=== PATIENT | female | born 1965 | race Caucasian/White ===

== ENCOUNTER 2016-09-09 18:15 | Emergency (ER) | payer BC ==
[2016-09-09 18:33] VITALS: BP 138/91
--- NOTE | 2016-09-09 18:48 | EDM.PDOC ---
ED HPI GENERAL MEDICAL PROBLEM - General Chief Complaint: Gastrointestinal Problem Stated Complaint: PT HAS RECTAL BLEEDING Time Seen by Provider: 09/09/16 18:28 Source of Information: Reports: Patient History Limitations: Reports: No Limitations - History of Present Illness INITIAL COMMENTS - FREE TEXT/NARRATIVE: Presents reporting rectal bleeding. The patient states that she just noticed it today and had 3 loose stools with some bright red blood in it. She had a screening colonoscopy in March of 2016 which was totally normal. No abdominal pain, fever, vomiting or any other symptoms. She is otherwise healthy except for a chronic kidney disease which is stable. 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 - Related Data Allergies Allergy/AdvReac Type Severity Reaction Status Date / Time animal dander Allergy Shortness Verified 09/09/16 18:28 of Breath spironolactone Allergy Hives Verified 09/09/16 18:28 [From Aldactone] Home Meds: Home Meds Citalopram [Celexa] 10 mg PO DAILY 08/02/15 [History] Furosemide 40 mg PO DAILY 08/02/15 [History] atorvaSTATin Calcium [Atorvastatin Calcium] 40 mg PO BEDTIME 08/02/15 [History] Aspirin [Joanne Chewable] 81 mg PO DAILY 09/09/16 [History] Lorcaserin HCl [Belviq] 10 mg PO DAILY 09/09/16 [History] Losartan [Cozaar] 50 mg PO BID 09/09/16 [History] Past Medical History HEENT History: Reports: None Cardiovascular History: Reports: High Cholesterol, Hypertension Respiratory History: Reports: None Gastrointestinal History: Reports: GERD Other Gastrointestinal History: occasional heartburn Genitourinary History: Reports: Renal Disease 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: Musculoskeletal History: Reports: None Neurological History: Reports: None Psychiatric History: Reports: Anxiety, Depression Endocrine/Metabolic History: Reports: Obesity/BMI 30+ Hematologic History: Reports: None Immunologic History: Reports: None Oncologic (Cancer) History: Other Oncologic History: melanoma Dermatologic History: Reports: Melanoma - Past Surgical History Head Surgeries/Procedures: Reports: None GI Surgical History: Reports: Cholecystectomy Female Surgical History: Reports: Section Social & Family History - Family History Family Medical History: Noncontributory - Tobacco Use Smoking Status *Q: Current Every Day Smoker Years of Tobacco use: 30 Packs/Tins Daily: 1 - Recreational Drug Use Recreational Drug Use: No Drug Use in Last 12 Months: No ED ROS GENERAL - Review of Systems Review Of Systems: ROS reveals no pertinent complaints other than HPI. ED EXAM, GI/ABD - Physical Exam Exam: See Below General Appearance: Alert, No Apparent Distress Ears: Normal External Exam Nose: Normal Inspection Throat/Mouth: Normal Inspection Head: Atraumatic, Normocephalic Neck: Normal Inspection Respiratory/Chest: No Respiratory Distress, Lungs Clear, Normal Breath Sounds Cardiovascular: Normal Peripheral Pulses, Regular Rate, Rhythm, No Murmur GI/Abdominal: Normal Bowel Sounds, Soft, Non-Tender, No Distention, Other Rectal (Female) Exam: Normal Exam, Normal Rectal Tone, Heme - Stool, Other (On digital exam, my finger came out with stacy colored liquid but it was hemoccult negative.). No: Black Stool Back Exam: Normal Inspection, Full Range of Motion Extremities: Normal Inspection, Normal Range of Motion, Non-Tender Neurological: Alert, Oriented Psychiatric: Normal Affect, Normal Mood Skin Exam: Warm, Dry, Intact, Normal Color, No Rash Lymphatic: No Adenopathy Course - Vital Signs Last Recorded V/S: Last Vital Signs Temp 37.1 C 09/09/16 18:30 Pulse 84 09/09/16 18:30 Resp 18 09/09/16 18:30 BP 138/91 H 09/09/16 18:30 Pulse Ox 97 09/09/16 18:30 - Re-Assessments/Exams Free Text/Narrative Re-Assessment/Exam: 09/09/16 18:47 On further recollection the patient states that she had sushi last night with a bright red wrap. Departure - Departure Time of Disposition: 18:48 Disposition: Home, Self-Care 01 Condition: good Clinical Impression: Feared condition not demonstrated - Discharge Information Referrals: PCP,None [Primary Care Provider] - Jessica Garcia DO [Physician] - Forms: ED Department Discharge
== END 2016-09-09 19:01 | disposition home or self-care (01) ==
LOC: MW.ED 18:15
DX: Z71.1 Person with feared health complaint in whom no diagnosis is made (principal); K62.5 Hemorrhage of anus and rectum; I10 Essential (primary) hypertension; E78.00 Pure hypercholesterolemia, unspecified; K21.9 Gastro-esophageal reflux disease without esophagitis; F41.9 Anxiety disorder, unspecified; F32.9 Major depressive disorder, single episode, unspecified; F17.210 Nicotine dependence, cigarettes, uncomplicated; E66.9 Obesity, unspecified; Z68.32 Body mass index [BMI] 32.0-32.9, adult; Z90.49 Acquired absence of other specified parts of digestive tract; Z98.890 Other specified postprocedural states; Z79.82 Long term (current) use of aspirin; Z79.899 Other long term (current) drug therapy; Z88.8 Allergy status to other drugs, medicaments and biological substances; Z91.048 Other nonmedicinal substance allergy status
CPT/HCPCS: 99282; 99283

== ENCOUNTER 2018-11-17 22:39 | Observation (INO) | payer BC ==
[2018-11-17] MEDS ORDERED: Sodium Chloride 0.9% 1,000 ML IV ONE (23:02)
[2018-11-17] MEDS ORDERED: Ketorolac 30 MG/ML SDV IVPUSH ONE (23:02)
[2018-11-17] MEDS ORDERED: Ondansetron 4 MG/2 ML SDV IVPUSH ONE (23:14)
--- NOTE | 2018-11-17 23:14 | EDM.PDOC ---
ED HPI GENERAL MEDICAL PROBLEM - General Chief Complaint: Fever Stated Complaint: FEVER Time Seen by Provider: 11/17/18 22:40 Source of Information: Reports: Patient History Limitations: Reports: No Limitations - History of Present Illness INITIAL COMMENTS - FREE TEXT/NARRATIVE: HISTORY AND PHYSICAL: History of present illness: Patient is a 53-year-old female who presents to the ED today for concern of feeling feverish with chills that was sudden onset about an hour ago when she was getting ready for bed. Patient states it was almost immediate and then she felt chilly she couldn't get warm. Patient states she did not check a temperature at home but did take a full dose of Tylenol. Patient states she feels "crappy". Patient states over the past 2 days she has had a cough. Patient has a difficult time trying to express how she feels but states that she feels unwell. 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 Patient states she has never had these feelings before. Patient denies any other symptoms or concerns at this time. Patient does smoke 1/2 pack a day for 20-30 years. Patient denies chest pain, shortness of breath. Denies headache, neck stiff ness , change in vision, syncope, or near syncope. Denies vomiting, abdominal pain, diarrhea, constipation, or dysuria. Has not noted any blood in urine or stool. Patient has been eating and drinking appropriately prior to onset of symptoms. Review of systems: As per history of present illness and below otherwise all systems reviewed and negative. Past medical history: As per history of present illness and as reviewed below otherwise noncontributory. Surgical history: As per history of present illness and as reviewed below otherwise noncontributory. Social history: See social history for further information Family history: As per history of present illness and as reviewed below otherwise noncontributory. Physical exam: General: Patient is alert, oriented, and in no acute distress. Patient sitting comfortably on exam table but is tearful on exam and tired appearing. HEENT: Atraumatic, normocephalic, pupils equal and reactive bilaterally, negative for conjunctival pallor or scleral icterus, mucous membranes moist, TMs normal bilaterally, throat clear, neck supple, nontender, trachea midline. No drooling or trismus noted. No meningeal signs. No hot potato voice noted. Lungs: Clear to auscultation, breath sounds equal bilaterally, chest nontender. Heart: S1S2, regular rate and rhythm without overt murmur Abdomen: Soft, nondistended, nontender. Negative for masses or hepatosplenomegaly. Negative for costovertebral tenderness. Pelvis: Stable nontender. Genitourinary: Deferred. Rectal: Deferred. Skin: Intact, warm, dry. No lesions or rashes noted. Extremities: Atraumatic, negative for cords or calf pain. Neurovascular unremarkable. Neuro: Awake, alert, oriented. Cranial nerves II through XII unremarkable. Cerebellum unremarkable. Motor and sensory unremarkable throughout. Exam nonfocal. Notes: Dr. Lopez verbally involved in patient care. Although CXR reads negative, I did compare with past CXR we have on file for patient and today there does appear to be a new shadowing / prominent markings in the retrocardiac area on the lateral films. With patient's symptoms, along with her history of heavy smoking, elevated white count, and concern for an early or probable pneumonia. Dr. Lau consulted on patient and will admit to observation. Voices understanding and is agreeable to plan of care. Denies any further questions or concerns at this time. Diagnostics: CBC, CMP, UA, EKG, troponin, chest x-ray, Mckinley, influenza, d-dimer, lactate, blood cultures 2 Therapeutics: Saline, Toradol, Zofran, Levaquin Impression: Possible early community acquired pneumonia Leukocytosis Dehydration Plan: 1. Admit to observation to Dr. Lau Definitive disposition and diagnosis as appropriate pending reevaluation and review of above. 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 ASSISTANT: Reports: Acetaminophen - Related Data Allergies Allergy/AdvReac Type Severity Reaction Status Date / Time animal dander Allergy Shortness Verified 11/17/18 22:45 of Breath spironolactone Allergy Hives Verified 11/17/18 22:45 [From Aldactone] Home Meds: Home Meds Furosemide 40 mg PO DAILY 08/02/15 [History] atorvaSTATin Calcium [Atorvastatin Calcium] 40 mg PO BEDTIME 08/02/15 [History] Aspirin [Joanne Chewable] 81 mg PO DAILY 09/09/16 [History] Losartan [Cozaar] 50 mg PO BID 09/09/16 [History] Past Medical History HEENT History: Reports: None Cardiovascular History: Reports: High Cholesterol, Hypertension Respiratory History: Reports: Bronchitis, Recurrent Gastrointestinal History: Reports: GERD Other Gastrointestinal History: occasional heartburn Genitourinary History: Reports: Renal Disease 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: Reports: Musculoskeletal History: Reports: None Neurological History: Reports: None Psychiatric History: Reports: Anxiety, Depression Endocrine/Metabolic History: Reports: Obesity/BMI 30+ Hematologic History: Reports: None Immunologic History: Reports: None Oncologic (Cancer) History: Other Oncologic History: melanoma Dermatologic History: Reports: Melanoma - Infectious Disease History Infectious Disease History: Reports: Chicken Pox - Past Surgical History Head Surgeries/Procedures: Reports: None GI Surgical History: Reports: Cholecystectomy Female Surgical History: Reports: Section Social & Family History - Family History Family Medical History: Noncontributory - Tobacco Use Smoking Status *Q: Current Every Day Smoker Years of Tobacco use: 25 Packs/Tins Daily: 0.5 - Caffeine Use Caffeine Use: Reports: Coffee - Recreational Drug Use Recreational Drug Use: No ED ROS GENERAL - Review of Systems Review Of Systems: ROS reveals no pertinent complaints other than HPI. ED EXAM, GENERAL - Physical Exam Exam: See Below (see dictation) Course - Vital Signs Last Recorded V/S: Last Vital Signs Temp 37.9 C 11/18/18 00:00 Pulse 104 H 11/18/18 00:00 Resp 18 11/18/18 00:00 BP 127/63 11/18/18 00:00 Pulse Ox 95 11/18/18 00:00 - Orders/Labs/Meds Orders: Active Orders 24 hr Category Date Time Status Admission Status [Patient Status] [ADT] Stat ADT 11/18/18 00:04 Ordered EKG Documentation Completion [RC] STAT Care 11/17/18 22:54 Active CULTURE BLOOD [BC] Stat Lab 11/17/18 23:25 Received CULTURE BLOOD [BC] Stat Lab 11/17/18 23:35 Received Levofloxacin/Dextrose 5%-Water [Levaquin in D5W 750 MG/ Med 11/18/18 00:04 Ordered 150 ML] 750 mg Premix Bag 1 bag IV ONETIME Blood Culture x2 Reflex Set [OM.PC] Stat Oth 11/17/18 23:08 Ordered Medication Orders Levofloxacin/Dextrose 750 mg/ (Premix) 150 mls @ 100 mls/hr IV ONETIME ONE Stop: 11/18/18 01:33 Labs: Laboratory Tests 11/17/18 11/17/18 11/17/18 Range/Units 23:00 23:02 23:02 WBC 20.78 H (4.0-11.0) K/uL RBC 5.03 (4.30-5.90) M/uL Hgb 15.9 (12.0-16.0) g/dL Hct 45.9 (36.0-46.0) % MCV 91.3 (80.0-98.0) fL MCH 31.6 (27.0-32.0) pg MCHC 34.6 (31.0-37.0) g/dL RDW Std Deviation 41.1 (28.0-62.0) fl RDW Coeff of Kourtney 13 (11.0-15.0) % Plt Count 236 (150-400) K/uL MPV 10.30 (7.40-12.00) fL Neut % (Auto) 75.9 (48.0-80.0) % Lymph % (Auto) 15.9 L (16.0-40.0) % Mckinley % (Auto) 6.2 (0.0-15.0) % Eos % (Auto) 1.6 (0.0-7.0) % Baso % (Auto) 0.4 (0.0-1.5) % Neut # (Auto) 15.8 H (1.4-5.7) K/uL Lymph # (Auto) 3.3 H (0.6-2.4) K/uL Mckinley # (Auto) 1.3 H (0.0-0.8) K/uL Eos # (Auto) 0.3 (0.0-0.7) K/uL Baso # (Auto) 0.1 (0.0-0.1) K/uL D-Dimer, Quantitative (0.0-0.50) mg/L FEU Lactate (0.20-2.00) mmol/L Sodium 139 (136-145) mmol/L Potassium 3.8 (3.5-5.1) mmol/L Chloride 105 (98-107) mmol/L Carbon Dioxide 20.8 L (21.0-32.0) mmol/L BUN 23 H (7.0-18.0) mg/dL Creatinine 1.5 H (0.6-1.0) mg/dL Est Cr Clr Drug Dosing 45.33 mL/min Estimated GFR (MDRD) 36.3 ml/min Glucose 89 (74-106) mg/dL Calcium 9.7 (8.5-10.1) mg/dL Total Bilirubin 0.5 (0.2-1.0) mg/dL AST 20 (15-37) IU/L ALT 33 (14-63) IU/L Alkaline Phosphatase 105 (46-116) U/L Troponin I (0.000-0.056) ng/mL Total Protein 6.8 (6.4-8.2) g/dL Albumin 3.3 L (3.4-5.0) g/dL Globulin 3.5 (2.6-4.0) g/dL Albumin/Globulin Ratio 0.9 (0.9-1.6) Urine Color YELLOW Urine Appearance HAZY Urine pH 5.5 (5.0-8.0) Ur Specific Royal 1.020 (1.001-1.035) Urine Protein 100 H (NEGATIVE) mg/dL Urine Glucose (UA) NEGATIVE (NEGATIVE) mg/dL Urine Ketones NEGATIVE (NEGATIVE) mg/dL Urine Occult Blood SMALL H (NEGATIVE) Urine Nitrite NEGATIVE (NEGATIVE) Urine Bilirubin NEGATIVE (NEGATIVE) Urine Urobilinogen 0.2 (<2.0) EU/dL Ur Leukocyte Esterase NEGATIVE (NEGATIVE) Urine RBC 0-3 (0-2/HPF) Urine WBC 0-2 (0-5/HPF) Ur Epithelial Cells FEW (NONE-FEW) Amorphous Sediment LIGHT (NEGATIVE) Urine Bacteria FEW (NEGATIVE) Monoscreen (NEG) 11/17/18 11/17/18 11/17/18 Range/Units 23:02 23:02 23:03 WBC (4.0-11.0) K/uL RBC (4.30-5.90) M/uL Hgb (12.0-16.0) g/dL Hct (36.0-46.0) % MCV (80.0-98.0) fL MCH (27.0-32.0) pg MCHC (31.0-37.0) g/dL RDW Std Deviation (28.0-62.0) fl RDW Coeff of Kourtney (11.0-15.0) % Plt Count (150-400) K/uL MPV (7.40-12.00) fL Neut % (Auto) (48.0-80.0) % Lymph % (Auto) (16.0-40.0) % Mckinley % (Auto) (0.0-15.0) % Eos % (Auto) (0.0-7.0) % Baso % (Auto) (0.0-1.5) % Neut # (Auto) (1.4-5.7) K/uL Lymph # (Auto) (0.6-2.4) K/uL Mckinley # (Auto) (0.0-0.8) K/uL Eos # (Auto) (0.0-0.7) K/uL Baso # (Auto) (0.0-0.1) K/uL D-Dimer, Quantitative (0.0-0.50) mg/L FEU Lactate 1.3 (0.20-2.00) mmol/L Sodium (136-145) mmol/L Potassium (3.5-5.1) mmol/L Chloride (98-107) mmol/L Carbon Dioxide (21.0-32.0) mmol/L BUN (7.0-18.0) mg/dL Creatinine (0.6-1.0) mg/dL Est Cr Clr Drug Dosing mL/min Estimated GFR (MDRD) ml/min Glucose (74-106) mg/dL Calcium (8.5-10.1) mg/dL Total Bilirubin (0.2-1.0) mg/dL AST (15-37) IU/L ALT (14-63) IU/L Alkaline Phosphatase (46-116) U/L Troponin I < 0.050 (0.000-0.056) ng/mL Total Protein (6.4-8.2) g/dL Albumin (3.4-5.0) g/dL Globulin (2.6-4.0) g/dL Albumin/Globulin Ratio (0.9-1.6) Urine Color Urine Appearance Urine pH (5.0-8.0) Ur Specific Royal (1.001-1.035) Urine Protein (NEGATIVE) mg/dL Urine Glucose (UA) (NEGATIVE) mg/dL Urine Ketones (NEGATIVE) mg/dL Urine Occult Blood (NEGATIVE) Urine Nitrite (NEGATIVE) Urine Bilirubin (NEGATIVE) Urine Urobilinogen (<2.0) EU/dL Ur Leukocyte Esterase (NEGATIVE) Urine RBC (0-2/HPF) Urine WBC (0-5/HPF) Ur Epithelial Cells (NONE-FEW) Amorphous Sediment (NEGATIVE) Urine Bacteria (NEGATIVE) Monoscreen NEGATIVE (NEG) 11/17/18 Range/Units 23:03 WBC (4.0-11.0) K/uL RBC (4.30-5.90) M/uL Hgb (12.0-16.0) g/dL Hct (36.0-46.0) % MCV (80.0-98.0) fL MCH (27.0-32.0) pg MCHC (31.0-37.0) g/dL RDW Std Deviation (28.0-62.0) fl RDW Coeff of Kourtney (11.0-15.0) % Plt Count (150-400) K/uL MPV (7.40-12.00) fL Neut % (Auto) (48.0-80.0) % Lymph % (Auto) (16.0-40.0) % Mckinley % (Auto) (0.0-15.0) % Eos % (Auto) (0.0-7.0) % Baso % (Auto) (0.0-1.5) % Neut # (Auto) (1.4-5.7) K/uL Lymph # (Auto) (0.6-2.4) K/uL Mckinley # (Auto) (0.0-0.8) K/uL Eos # (Auto) (0.0-0.7) K/uL Baso # (Auto) (0.0-0.1) K/uL D-Dimer, Quantitative 0.29 (0.0-0.50) mg/L FEU Lactate (0.20-2.00) mmol/L Sodium (136-145) mmol/L Potassium (3.5-5.1) mmol/L Chloride (98-107) mmol/L Carbon Dioxide (21.0-32.0) mmol/L BUN (7.0-18.0) mg/dL Creatinine (0.6-1.0) mg/dL Est Cr Clr Drug Dosing mL/min Estimated GFR (MDRD) ml/min Glucose (74-106) mg/dL Calcium (8.5-10.1) mg/dL Total Bilirubin (0.2-1.0) mg/dL AST (15-37) IU/L ALT (14-63) IU/L Alkaline Phosphatase (46-116) U/L Troponin I (0.000-0.056) ng/mL Total Protein (6.4-8.2) g/dL Albumin (3.4-5.0) g/dL Globulin (2.6-4.0) g/dL Albumin/Globulin Ratio (0.9-1.6) Urine Color Urine Appearance Urine pH (5.0-8.0) Ur Specific Royal (1.001-1.035) Urine Protein (NEGATIVE) mg/dL Urine Glucose (UA) (NEGATIVE) mg/dL Urine Ketones (NEGATIVE) mg/dL Urine Occult Blood (NEGATIVE) Urine Nitrite (NEGATIVE) Urine Bilirubin (NEGATIVE) Urine Urobilinogen (<2.0) EU/dL Ur Leukocyte Esterase (NEGATIVE) Urine RBC (0-2/HPF) Urine WBC (0-5/HPF) Ur Epithelial Cells (NONE-FEW) Amorphous Sediment (NEGATIVE) Urine Bacteria (NEGATIVE) Monoscreen (NEG) Meds: Medications Generic Name Dose Route Start Last Admin Trade Name Cortezq PRN Reason Stop Dose Admin Levofloxacin/Dextrose 750 mg/ 150 mls @ 100 mls/hr 11/18/18 00:04 Premix IV 11/18/18 01:33 ONETIME ONE Discontinued Medications Generic Name Dose Route Start Last Admin Trade Name Freq PRN Reason Stop Dose Admin Sodium Chloride 1,000 mls @ 999 mls/hr 11/17/18 23:02 11/17/18 23:29 Normal Saline IV 11/18/18 00:02 999 mls/hr BOLUS ONE Administration Ketorolac Tromethamine 60 mg 11/17/18 23:02 11/17/18 23:33 Toradol IVPUSH 11/17/18 23:03 Not Given ONETIME ONE Ondansetron HCl 4 mg 11/17/18 23:14 11/17/18 23:31 Zofran IVPUSH 11/17/18 23:15 4 mg ONETIME ONE Administration Departure - Departure Time of Disposition: 00:10 Disposition: Refer to Observation Clinical Impression: Dehydration Community acquired pneumonia Qualifiers: Laterality: unspecified laterality Qualified Code(s): J18.9 - Pneumonia, unspecified organism Leukocytosis Qualifiers: Leukocytosis type: unspecified Qualified Code(s): D72.829 - Elevated white blood cell count, unspecified - Discharge Information - My Orders Last 24 Hours: My Active Orders 11/17/18 22:54 EKG Documentation Completion [RC] STAT 11/17/18 23:08 Blood Culture x2 Reflex Set [OM.PC] Stat 11/17/18 23:25 CULTURE BLOOD [BC] Stat 11/17/18 23:35 CULTURE BLOOD [BC] Stat 11/18/18 00:04 Admission Status [Patient Status] [ADT] Stat Levofloxacin/Dextrose 5%-Water [Levaquin in D5W 750 MG/150 ML] 750 mg Premix Bag 1 bag IV ONETIME - Assessment/Plan Last 24 Hours: My Active Orders 11/17/18 22:54 EKG Documentation Completion [RC] STAT 11/17/18 23:08 Blood Culture x2 Reflex Set [OM.PC] Stat 11/17/18 23:25 CULTURE BLOOD [BC] Stat 11/17/18 23:35 CULTURE BLOOD [BC] Stat 11/18/18 00:04 Admission Status [Patient Status] [ADT] Stat Levofloxacin/Dextrose 5%-Water [Levaquin in D5W 750 MG/150 ML] 750 mg Premix Bag 1 bag IV ONETIME
[2018-11-17 23:28] LABS: CARBON DIOXIDE,CO2 20.8 mmol/L (21.0-32.0); POTASSIUM,K 3.8 mmol/L (3.5-5.1)
--- NOTE | 2018-11-17 23:47 | CR ---
INDICATION: cough, fever TECHNIQUE: Chest 2 views. COMPARISON: None. FINDINGS: Cardiovascular and mediastinum: Heart size and vasculature are normal in caliber and appearance. Mediastinum is within normal limits. Lungs and pleural spaces: Lungs are clear. No sign of infiltrate or mass. No sign of pleural effusion. No pneumothorax. Bones and soft tissues: No significant findings. IMPRESSION: Unremarkable chest. Dictated by: Yan Louis MD @ 11/17/2018 23:46:21 (Electronically Signed)
[2018-11-18] MEDS ORDERED: Levofloxacin/Dextrose 5%-Water 750 MG in Premix Bag 1 BAG IV ONE (00:04)
[2018-11-18] MEDS ORDERED: Ondansetron 4 MG/2 ML SDV IVPUSH PRN (01:30)
[2018-11-18] MEDS: Sodium Chloride 0.9% 1,000 ML IV SCH ×4 (02:03→23:07)
[2018-11-18 06:07] LABS: CARBON DIOXIDE,CO2 22.6 mmol/L (21.0-32.0); POTASSIUM,K 4.5 mmol/L (3.5-5.1)
--- NOTE | 2018-11-18 08:17 | PCM.HP ---
H&P History of Present Illness - General Date of Service: 11/18/18 Admit Problem/Dx: Admission Diagnosis/Problem Admission Diagnosis/Problem Pneumonia - History of Present Illness Initial Comments - Free Text/Narative: 53-year-old female presented to [facility] ER with complaints of fatigue, cough, subjective fever and chills. She has a PMH of FSGS, HTN and hyperlipidemia. She recently returned from a weekend trip to [place] yesterday afternoon. She has had a cough for about 2 days now and is coughing up whitish-colored sputum. Yesterday evening she started having the chills which prompted her to come to the hospital for further evaluation. She smokes 1/2 ppd for the past 30 years. Denies any other illicit drugs. Patient follows up with copyman in [place] for FSGS and is due for follow-up appointment next month. On admission, CXR showed developing pneumonia in retrocardiac window. Influenza and monospot test were negative. Patient was started on IV fluids and IV levaquin. Patient had elevated WBC count and was admitted for further evaluation and treatment. At bedside patient denies shortness of breath, chest pain, nausea, vomiting, diarrhea or muscle aches. - Related Data Allergies/Adverse Reactions: Allergies Allergy/AdvReac Type Severity Reaction Status Date / Time animal dander Allergy Shortness Verified 11/18/18 01:32 of Breath NSAIDS (Non-Steroidal Allergy Renal Verified 11/18/18 01:32 Anti-Inflamma Insufficiency spironolactone Allergy Hives Verified 11/18/18 01:32 [From Aldactone] Home Medications: Home Meds Furosemide 40 mg PO DAILY 08/02/15 [History] atorvaSTATin Calcium [Atorvastatin Calcium] 40 mg PO BEDTIME 08/02/15 [History] Aspirin [Joanne Chewable] 81 mg PO DAILY 09/09/16 [History] Losartan [Cozaar] 50 mg PO BID 09/09/16 [History] Loratadine/Pseudoephedrine [Loratadine-D 24Hr Tab] 1 each PO DAILY PRN 11/18/18 [History] Past Medical History HEENT History: Reports: None Cardiovascular History: Reports: High Cholesterol, Hypertension Respiratory History: Reports: Bronchitis, Recurrent Gastrointestinal History: Reports: GERD Other Gastrointestinal History: occasional heartburn Genitourinary History: Reports: Renal Disease 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 [employer] History: Reports: Musculoskeletal History: Reports: None Neurological History: Reports: None Psychiatric History: Reports: Anxiety, Depression Endocrine/Metabolic History: Reports: Obesity/BMI 30+ Hematologic History: Reports: None Immunologic History: Reports: None Oncologic (Cancer) History: Reports: Malignant Melanoma Other Oncologic History: melanoma Dermatologic History: Reports: Melanoma - Infectious Disease History Infectious Disease History: Reports: Chicken Pox - Past Surgical History Head Surgeries/Procedures: Reports: None Cardiovascular Surgical History: Reports: None GI Surgical History: Reports: Cholecystectomy Female Surgical History: Reports: Section Social & Family History - Family History Family Medical History: Noncontributory - Tobacco Use Smoking Status *Q: Current Every Day Smoker Years of Tobacco use: 20 Packs/Tins Daily: 0.5 Used Tobacco, but Quit: No Second Hand Smoke Exposure: No - Caffeine Use Caffeine Use: Reports: Coffee - Recreational Drug Use Recreational Drug Use: No H&P Review of Systems - Review of Systems: Review Of Systems: ROS reveals no pertinent complaints other than HPI. Exam - Exam Exam: See Below - Vital Signs Vital Signs: Last Vital Signs Temp 98.8 F 11/18/18 08:00 Pulse 88 11/18/18 08:00 Resp 16 11/18/18 08:00 BP 121/61 11/18/18 08:00 Pulse Ox 94 L 11/18/18 08:00 Weight: 231 lb 11.2 oz - Exam General: Alert, Oriented, Cooperative HEENT: Conjunctiva Clear, EOMI, Hearing Intact, Posterior Pharynx Clear, Pupils Equal Neck: Supple, Trachea Midline Lungs: Clear to Auscultation, Normal Respiratory Effort Cardiovascular: Regular Rate, Regular Rhythm GI/Abdominal Exam: Normal Bowel Sounds, Soft, Non-Tender, No Distention Extremities: Normal Inspection. No: No Pedal Edema Peripheral Pulses: 2+: Posterior Tibial (L), Posterior Tibial (R) Skin: Warm, Dry, Intact Neurological: Cranial Nerves Intact, Strength Equal Bilateral, Normal Speech, Normal Tone Psychiatric: Alert, Normal Affect, Normal Mood - Patient Data Lab Results Last 24 hrs: Laboratory Results - last 24 hr 11/17/18 11/17/18 11/17/18 Range/Units 23:00 23:00 23:02 WBC 20.78 H (4.0-11.0) K/uL RBC 5.03 (4.30-5.90) M/uL Hgb 15.9 (12.0-16.0) g/dL Hct 45.9 (36.0-46.0) % MCV 91.3 (80.0-98.0) fL MCH 31.6 (27.0-32.0) pg MCHC 34.6 (31.0-37.0) g/dL RDW Std Deviation 41.1 (28.0-62.0) fl RDW Coeff of Kourtney 13 (11.0-15.0) % Plt Count 236 (150-400) K/uL MPV 10.30 (7.40-12.00) fL Neut % (Auto) 75.9 (48.0-80.0) % Lymph % (Auto) 15.9 L (16.0-40.0) % [place] % (Auto) 6.2 (0.0-15.0) % Eos % (Auto) 1.6 (0.0-7.0) % Baso % (Auto) 0.4 (0.0-1.5) % Neut # (Auto) 15.8 H (1.4-5.7) K/uL Lymph # (Auto) 3.3 H (0.6-2.4) K/uL [place] # (Auto) 1.3 H (0.0-0.8) K/uL Eos # (Auto) 0.3 (0.0-0.7) K/uL Baso # (Auto) 0.1 (0.0-0.1) K/uL D-Dimer, Quantitative (0.0-0.50) mg/L FEU Lactate (0.20-2.00) mmol/L Sodium (136-145) mmol/L Potassium (3.5-5.1) mmol/L Chloride (98-107) mmol/L Carbon Dioxide (21.0-32.0) mmol/L BUN (7.0-18.0) mg/dL Creatinine (0.6-1.0) mg/dL Est Cr Clr Drug Dosing mL/min Estimated GFR (MDRD) ml/min Glucose (74-106) mg/dL Calcium (8.5-10.1) mg/dL Total Bilirubin (0.2-1.0) mg/dL AST (15-37) IU/L ALT (14-63) IU/L Alkaline Phosphatase (46-116) U/L Troponin I (0.000-0.056) ng/mL Total Protein (6.4-8.2) g/dL Albumin (3.4-5.0) g/dL Globulin (2.6-4.0) g/dL Albumin/Globulin Ratio (0.9-1.6) Urine Color YELLOW Urine Appearance HAZY Urine pH 5.5 (5.0-8.0) Ur Specific X[place] 1.020 (1.001-1.035) Urine Protein 100 H (NEGATIVE) mg/dL Urine Glucose (UA) NEGATIVE (NEGATIVE) mg/dL Urine Ketones NEGATIVE (NEGATIVE) mg/dL Urine Occult Blood SMALL H (NEGATIVE) Urine Nitrite NEGATIVE (NEGATIVE) Urine Bilirubin NEGATIVE (NEGATIVE) Urine Urobilinogen 0.2 (<2.0) EU/dL Ur Leukocyte Esterase NEGATIVE (NEGATIVE) Urine RBC 0-3 (0-2/HPF) Urine WBC 0-2 (0-5/HPF) Ur Epithelial Cells FEW (NONE-FEW) Amorphous Sediment LIGHT (NEGATIVE) Urine Bacteria FEW (NEGATIVE) Ur Random Creatinine 96.2 mg/dL Ur Random Sodium 28.0 L (40.0-220.0) mmol/L Monoscreen (NEG) 11/17/18 11/17/18 11/17/18 Range/Units 23:02 23:02 23:02 WBC (4.0-11.0) K/uL RBC (4.30-5.90) M/uL Hgb (12.0-16.0) g/dL Hct (36.0-46.0) % MCV (80.0-98.0) fL MCH (27.0-32.0) pg MCHC (31.0-37.0) g/dL RDW Std Deviation (28.0-62.0) fl RDW Coeff of Kourtney (11.0-15.0) % Plt Count (150-400) K/uL MPV (7.40-12.00) fL Neut % (Auto) (48.0-80.0) % Lymph % (Auto) (16.0-40.0) % [place] % (Auto) (0.0-15.0) % Eos % (Auto) (0.0-7.0) % Baso % (Auto) (0.0-1.5) % Neut # (Auto) (1.4-5.7) K/uL Lymph # (Auto) (0.6-2.4) K/uL [place] # (Auto) (0.0-0.8) K/uL Eos # (Auto) (0.0-0.7) K/uL Baso # (Auto) (0.0-0.1) K/uL D-Dimer, Quantitative (0.0-0.50) mg/L FEU Lactate (0.20-2.00) mmol/L Sodium 139 (136-145) mmol/L Potassium 3.8 (3.5-5.1) mmol/L Chloride 105 (98-107) mmol/L Carbon Dioxide 20.8 L (21.0-32.0) mmol/L BUN 23 H (7.0-18.0) mg/dL Creatinine 1.5 H (0.6-1.0) mg/dL Est Cr Clr Drug Dosing 45.33 mL/min Estimated GFR (MDRD) 36.3 ml/min Glucose 89 (74-106) mg/dL Calcium 9.7 (8.5-10.1) mg/dL Total Bilirubin 0.5 (0.2-1.0) mg/dL AST 20 (15-37) IU/L ALT 33 (14-63) IU/L Alkaline Phosphatase 105 (46-116) U/L Troponin I < 0.050 (0.000-0.056) ng/mL Total Protein 6.8 (6.4-8.2) g/dL Albumin 3.3 L (3.4-5.0) g/dL Globulin 3.5 (2.6-4.0) g/dL Albumin/Globulin Ratio 0.9 (0.9-1.6) Urine Color Urine Appearance Urine pH (5.0-8.0) Ur Specific [place] (1.001-1.035) Urine Protein (NEGATIVE) mg/dL Urine Glucose (UA) (NEGATIVE) mg/dL Urine Ketones (NEGATIVE) mg/dL Urine Occult Blood (NEGATIVE) Urine Nitrite (NEGATIVE) Urine Bilirubin (NEGATIVE) Urine Urobilinogen (<2.0) EU/dL Ur Leukocyte Esterase (NEGATIVE) Urine RBC (0-2/HPF) Urine WBC (0-5/HPF) Ur Epithelial Cells (NONE-FEW) Amorphous Sediment (NEGATIVE) Urine Bacteria (NEGATIVE) Ur Random Creatinine mg/dL Ur Random Sodium (40.0-220.0) mmol/L Monoscreen NEGATIVE (NEG) 11/17/18 11/17/18 11/18/18 Range/Units 23:03 23:03 05:25 WBC 23.83 H (4.0-11.0) K/uL RBC 4.36 (4.30-5.90) M/uL Hgb 13.7 (12.0-16.0) g/dL Hct 40.6 (36.0-46.0) % MCV 93.1 (80.0-98.0) fL MCH 31.4 (27.0-32.0) pg MCHC 33.7 (31.0-37.0) g/dL RDW Std Deviation 41.9 (28.0-62.0) fl RDW Coeff of Kourtney 13 (11.0-15.0) % Plt Count 241 (150-400) K/uL MPV 10.90 (7.40-12.00) fL Neut % (Auto) 81.1 H (48.0-80.0) % Lymph % (Auto) 11.5 L (16.0-40.0) % [place] % (Auto) 6.3 (0.0-15.0) % Eos % (Auto) 0.8 (0.0-7.0) % Baso % (Auto) 0.3 (0.0-1.5) % Neut # (Auto) 19.4 H (1.4-5.7) K/uL Lymph # (Auto) 2.7 H (0.6-2.4) K/uL [place] # (Auto) 1.5 H (0.0-0.8) K/uL Eos # (Auto) 0.2 (0.0-0.7) K/uL Baso # (Auto) 0.1 (0.0-0.1) K/uL D-Dimer, Quantitative 0.29 (0.0-0.50) mg/L FEU Lactate 1.3 (0.20-2.00) mmol/L Sodium (136-145) mmol/L Potassium (3.5-5.1) mmol/L Chloride (98-107) mmol/L Carbon Dioxide (21.0-32.0) mmol/L BUN (7.0-18.0) mg/dL Creatinine (0.6-1.0) mg/dL Est Cr Clr Drug Dosing mL/min Estimated GFR (MDRD) ml/min Glucose (74-106) mg/dL Calcium (8.5-10.1) mg/dL Total Bilirubin (0.2-1.0) mg/dL AST (15-37) IU/L ALT (14-63) IU/L Alkaline Phosphatase (46-116) U/L Troponin I (0.000-0.056) ng/mL Total Protein (6.4-8.2) g/dL Albumin (3.4-5.0) g/dL Globulin (2.6-4.0) g/dL Albumin/Globulin Ratio (0.9-1.6) Urine Color Urine Appearance Urine pH (5.0-8.0) Ur Specific [place] (1.001-1.035) Urine Protein (NEGATIVE) mg/dL Urine Glucose (UA) (NEGATIVE) mg/dL Urine Ketones (NEGATIVE) mg/dL Urine Occult Blood (NEGATIVE) Urine Nitrite (NEGATIVE) Urine Bilirubin (NEGATIVE) Urine Urobilinogen (<2.0) EU/dL Ur Leukocyte Esterase (NEGATIVE) Urine RBC (0-2/HPF) Urine WBC (0-5/HPF) Ur Epithelial Cells (NONE-FEW) Amorphous Sediment (NEGATIVE) Urine Bacteria (NEGATIVE) Ur Random Creatinine mg/dL Ur Random Sodium (40.0-220.0) mmol/L Monoscreen (NEG) 11/18/18 Range/Units 05:25 WBC (4.0-11.0) K/uL RBC (4.30-5.90) M/uL Hgb (12.0-16.0) g/dL Hct (36.0-46.0) % MCV (80.0-98.0) fL MCH (27.0-32.0) pg MCHC (31.0-37.0) g/dL RDW Std Deviation (28.0-62.0) fl RDW Coeff of Kourtney (11.0-15.0) % Plt Count (150-400) K/uL MPV (7.40-12.00) fL Neut % (Auto) (48.0-80.0) % Lymph % (Auto) (16.0-40.0) % [place] % (Auto) (0.0-15.0) % Eos % (Auto) (0.0-7.0) % Baso % (Auto) (0.0-1.5) % Neut # (Auto) (1.4-5.7) K/uL Lymph # (Auto) (0.6-2.4) K/uL [place] # (Auto) (0.0-0.8) K/uL Eos # (Auto) (0.0-0.7) K/uL Baso # (Auto) (0.0-0.1) K/uL D-Dimer, Quantitative (0.0-0.50) mg/L FEU Lactate (0.20-2.00) mmol/L Sodium 141 (136-145) mmol/L Potassium 4.5 (3.5-5.1) mmol/L Chloride 109 H (98-107) mmol/L Carbon Dioxide 22.6 (21.0-32.0) mmol/L BUN 19 H (7.0-18.0) mg/dL Creatinine 1.4 H (0.6-1.0) mg/dL Est Cr Clr Drug Dosing 48.39 mL/min Estimated GFR (MDRD) 39.3 ml/min Glucose 93 (74-106) mg/dL Calcium 8.7 (8.5-10.1) mg/dL Total Bilirubin (0.2-1.0) mg/dL AST (15-37) IU/L ALT (14-63) IU/L Alkaline Phosphatase (46-116) U/L Troponin I (0.000-0.056) ng/mL Total Protein (6.4-8.2) g/dL Albumin (3.4-5.0) g/dL Globulin (2.6-4.0) g/dL Albumin/Globulin Ratio (0.9-1.6) Urine Color Urine Appearance Urine pH (5.0-8.0) Ur Specific [place] (1.001-1.035) Urine Protein (NEGATIVE) mg/dL Urine Glucose (UA) (NEGATIVE) mg/dL Urine Ketones (NEGATIVE) mg/dL Urine Occult Blood (NEGATIVE) Urine Nitrite (NEGATIVE) Urine Bilirubin (NEGATIVE) Urine Urobilinogen (<2.0) EU/dL Ur Leukocyte Esterase (NEGATIVE) Urine RBC (0-2/HPF) Urine WBC (0-5/HPF) Ur Epithelial Cells (NONE-FEW) Amorphous Sediment (NEGATIVE) Urine Bacteria (NEGATIVE) Ur Random Creatinine mg/dL Ur Random Sodium (40.0-220.0) mmol/L Monoscreen (NEG) Result Diagrams: 11/18/18 05:25 11/18/18 05:25 Mark Results Last 24 hrs: Microbiology 11/17/18 23:24 Influenza Type A Antigen Screen - Final Nasopharyngeal Swab NEGATIVE INFLUENZA A VIRUS AG REFERENCE RANGE: NEGATIVE Influenza Type B Antigen Screen - Final NEGATIVE INFLUENZA B VIRUS AG REFERENCE RANGE: NEGATIVE Problem List Initiated/Reviewed/Updated: Yes Orders Last 24hrs: Active Orders 24 hr Category Date Time Status Admission Status [Patient Status] [ADT] Stat ADT 11/18/18 00:04 Active Antiembolic Devices [RC] PER UNIT ROUTINE Care 11/18/18 08:08 Active EKG Documentation Completion [RC] STAT Care 11/17/18 22:54 Active Regular Diet [DIET] Diet 11/18/18 Breakfast Active BASIC METABOLIC PANEL,BMP [CHEM] AM Lab 11/19/18 05:11 Ordered CBC WITH AUTO DIFF [HEME] AM Lab 11/19/18 05:11 Ordered CULTURE BLOOD [BC] Stat Lab 11/17/18 23:25 Received CULTURE BLOOD [BC] Stat Lab 11/17/18 23:35 Received LEGIONELLA ANTIGEN [RM] Routine Lab 11/18/18 07:38 Received STREP PNEUMONIAE ANTIGEN [MREF] Urgent Lab 11/18/18 07:39 Received STREP SCRN A RAPID W CULT CONF [RM] Stat Lab 11/18/18 07:37 Ordered Aspirin Med 11/18/18 09:00 Ordered 81 mg PO DAILY Levofloxacin/Dextrose 5%-Water [Levaquin in D5W 750 MG/ Med 11/19/18 01:00 Active 150 ML] 750 mg Premix Bag 1 bag IV ONETIME Losartan [Cozaar] Med 11/18/18 09:00 Ordered 50 mg PO BID Ondansetron [Zofran] Med 11/18/18 01:30 Active 4 mg IVPUSH Q4H PRN Sodium Chloride 0.9% [Normal Saline] 1,000 ml Med 11/18/18 01:30 Active IV ASDIRECTED atorvaSTATin [Lipitor] Med 11/18/18 21:00 Ordered 40 mg PO BEDTIME Blood Culture x2 Reflex Set [OM.PC] Stat Oth 11/17/18 23:08 Ordered SCD [Sequential Compression Device] [OM.PC] Routine Oth 11/18/18 08:08 Ordered Resuscitation Status Routine Resus Stat 11/18/18 08:02 Ordered Medication Orders Aspirin (Aspirin) 81 mg PO DAILY EDWAR Atorvastatin Calcium (Lipitor) 40 mg PO BEDTIME EDWAR Sodium Chloride (Normal Saline) 1,000 mls @ 125 mls/hr IV ASDIRECTED EDWAR Last Admin: 11/18/18 02:03 Dose: 125 mls/hr Levofloxacin/Dextrose 750 mg/ (Premix) 150 mls @ 100 mls/hr IV ONETIME ONE Stop: 11/19/18 02:29 Losartan Potassium (Cozaar) 50 mg PO BID EDWAR Ondansetron HCl (Zofran) 4 mg IVPUSH Q4H PRN PRN Reason: Nausea/Vomiting Assessment/Plan Comment:: Assessment: 1. Community acquired pneumonia. 2. Leukocytosis likely secondary to #1. 3. Acute kidney injury. 4. Past medical history of FSGS, HTN, hyperlipidemia, anxiety, depression and melanoma. Plan: 1. For community acquired pneumonia, patient received 1 L fluid bolus and is on maintenance fluids. Continue IV Levaquin q48h as per kidney function. Will recheck BMP in the AM and if kidney function improves then will resume IV Levaquin q24h. Blood cultures pending. Will order urine strep, urine legionella and rapid strep test. 2. For leukocytosis, will continue to monitor. 3. For acute kidney injury, patient is on IV fluids. 4. For PMH will continue with home medications, with the exception of lasix and losartan which have been held for now.
[2018-11-18] MEDS: Aspirin 81 MG Tab.Chew PO SCH (08:44)
[2018-11-18] MEDS ORDERED: Losartan 50 MG Tab PO SCH (09:00)
[2018-11-18] MEDS ORDERED: atorvaSTATin 40 MG Tab PO SCH (21:00)
[2018-11-19] MEDS ORDERED: Levofloxacin/Dextrose 5%-Water 750 MG in Premix Bag 1 BAG IV ONE (01:00)
[2018-11-19 05:58] LABS: CARBON DIOXIDE,CO2 23.9 mmol/L (21.0-32.0); POTASSIUM,K 4.3 mmol/L (3.5-5.1)
[2018-11-19] MEDS: Sodium Chloride 0.9% 1,000 ML IV SCH (06:53)
[2018-11-19] MEDS: Aspirin 81 MG Tab.Chew PO SCH (08:27)
[2018-11-19 08:35] VITALS: BP 136/75; PULSE 80
[2018-11-19] MEDS ORDERED: Levofloxacin/Dextrose 5%-Water 750 MG in Premix Bag 1 BAG IV SCH (09:00)
--- NOTE | 2018-11-19 09:48 | PCM.DCSUM1 ---
<Pio Schneider - Last Filed: 11/19/18 09:44> Discharge Summary - Hospital Course Free Text/Narrative:: 53-year-old female admitted for community acquired pneumonia. CXR on admission showed possibly early developing pneumonia and patient was treated IV levaquin during her hospitalization. Her WBC count was downtrending on day of discharge. Blood cultures were negative at 24 hours. Patient remained afebrile and did not require any supplemental oxygen. She was discharged on a 5-day course of azithromycin. Return to work note was provided. - Discharge Data Discharge Date: 11/19/18 Discharge Disposition: Home, Self-Care 01 Condition: Good - Patient Instructions Diet: Regular Diet as Tolerated Activity: As Tolerated Notify Provider of: Fever, Increased Pain, Swelling and Redness, Drainage, Nausea and/or Vomiting - Discharge Plan *PRESCRIPTION DRUG MONITORING PROGRAM REVIEWED*: Not Applicable *COPY OF PRESCRIPTION DRUG MONITORING REPORT IN PATIENT FRANCOISE: Not Applicable Prescriptions/Med Rec: Azithromycin [Zithromax] 250 mg PO DAILY 5 Days #5 tab Home Medications: Home Meds Furosemide 40 mg PO BID 08/02/15 [History] atorvaSTATin Calcium [Atorvastatin Calcium] 40 mg PO BEDTIME 08/02/15 [History] Aspirin [Joanne Chewable Aspirin] 81 mg PO DAILY 09/09/16 [History] Losartan [Cozaar] 50 mg PO BID 09/09/16 [History] Loratadine/Pseudoephedrine [Loratadine-D 24Hr Tablet] 1 each PO DAILY PRN [History] Multivitamin with Minerals [Multiple Vitamin] 1 tab PO DAILY 11/18/18 [History] Azithromycin [Zithromax] 250 mg PO DAILY 5 Days #5 tab 11/19/18 [Rx] Referrals: Jessica Garcia DO [Physician] - - Discharge Summary/Plan Comment DC Time >30 min.: No - Patient Data Vitals - Most Recent: Last Vital Signs Temp 98.1 F 11/19/18 08:30 Pulse 80 11/19/18 08:30 Resp 16 11/19/18 08:30 BP 136/75 11/19/18 08:30 Pulse Ox 96 11/19/18 08:30 Weight - Most Recent: 105.097 kg I&O - Last 24 hours: Intake & Output 08/03/2711/19/18 11/19/18 22:59 06:59 14:59 Intake Total 2817 2790 Output Total 3100 2400 Balance -283 390 Lab Results - Last 24 hrs: Laboratory Results - last 24 hr 11/19/18 11/19/18 Range/Units 05:23 05:23 WBC 14.64 H (4.0-11.0) K/uL RBC 4.29 L (4.30-5.90) M/uL Hgb 13.1 (12.0-16.0) g/dL Hct 40.8 (36.0-46.0) % MCV 95.1 (80.0-98.0) fL MCH 30.5 (27.0-32.0) pg MCHC 32.1 (31.0-37.0) g/dL RDW Std Deviation 46.6 (28.0-62.0) fl RDW Coeff of Kourtney 13 (11.0-15.0) % Plt Count 211 (150-400) K/uL MPV 10.20 (7.40-12.00) fL Neut % (Auto) 71.1 (48.0-80.0) % Lymph % (Auto) 17.3 (16.0-40.0) % [place] % (Auto) 8.4 (0.0-15.0) % Eos % (Auto) 2.9 (0.0-7.0) % Baso % (Auto) 0.3 (0.0-1.5) % Neut # (Auto) 10.4 H (1.4-5.7) K/uL Lymph # (Auto) 2.5 H (0.6-2.4) K/uL [place] # (Auto) 1.2 H (0.0-0.8) K/uL Eos # (Auto) 0.4 (0.0-0.7) K/uL Baso # (Auto) 0.1 (0.0-0.1) K/uL Nucleated RBC % 0.0 /100WBC Nucleated RBCs # 0 K/uL Sodium 145 (136-145) mmol/L Potassium 4.3 (3.5-5.1) mmol/L Chloride 113 H (98-107) mmol/L Carbon Dioxide 23.9 (21.0-32.0) mmol/L BUN 14 (7.0-18.0) mg/dL Creatinine 1.2 H (0.6-1.0) mg/dL Est Cr Clr Drug Dosing 56.46 mL/min Estimated GFR (MDRD) 47.0 ml/min Glucose 93 (74-106) mg/dL Calcium 9.2 (8.5-10.1) mg/dL ZEYAD Results - Last 24 hrs: Microbiology 11/18/18 22:00 Gram Stain - Final Sputum - Expectorated 11/17/18 23:35 Aerobic Blood Culture - Preliminary Blood - Venous - Lab Draw NO GROWTH AFTER 1 DAY Anaerobic Blood Culture - Preliminary NO GROWTH AFTER 1 DAY 11/17/18 23:25 Aerobic Blood Culture - Preliminary Blood - Venous NO GROWTH AFTER 1 DAY Anaerobic Blood Culture - Preliminary NO GROWTH AFTER 1 DAY 11/18/18 08:45 Group A Streptococcus Rapid Screen - Final Throat NEGATIVE STREP A SCREEN REFERENCE RANGE: NEGATIVE 11/17/18 23:00 Streptococcus pneumoniae Ag Screen - Final Urine 11/17/18 23:00 Legionella Antigen - Final Urine, Clean Catch Med Orders - Current: Current Medications Aspirin (Aspirin) 81 mg PO DAILY [facility] Last Admin: 11/19/18 08:27 Dose: 81 mg Atorvastatin Calcium (Lipitor) 40 mg PO BEDTIME [facility] Last Admin: 11/18/18 20:59 Dose: 40 mg Sodium Chloride (Normal Saline) 1,000 mls @ 125 mls/hr IV ASDIRECTED [facility] Last Admin: 11/19/18 06:53 Dose: 125 mls/hr Levofloxacin/Dextrose 750 mg/ (Premix) 150 mls @ 100 mls/hr IV Q24H [facility] Last Admin: 11/19/18 08:30 Dose: 100 mls/hr Ondansetron HCl (Zofran) 4 mg IVPUSH Q4H PRN PRN Reason: Nausea/Vomiting Discontinued Medications Sodium Chloride (Normal Saline) 1,000 mls @ 999 mls/hr IV BOLUS ONE Stop: 11/18/18 00:02 Last Admin: 11/17/18 23:29 Dose: 999 mls/hr Levofloxacin/Dextrose 750 mg/ (Premix) 150 mls @ 100 mls/hr IV ONETIME ONE Stop: 11/18/18 01:33 Last Admin: 11/18/18 00:28 Dose: 100 mls/hr Levofloxacin/Dextrose 750 mg/ (Premix) 150 mls @ 100 mls/hr IV ONETIME ONE Stop: 11/19/18 02:29 Ketorolac Tromethamine (Toradol) 60 mg IVPUSH ONETIME ONE Stop: 11/17/18 23:03 Last Admin: 11/17/18 23:33 Dose: Not Given Losartan Potassium (Cozaar) 50 mg PO BID [facility] Last Admin: 11/18/18 08:43 Dose: 50 mg Ondansetron HCl (Zofran) 4 mg IVPUSH ONETIME ONE Stop: 11/17/18 23:15 Last Admin: 11/17/18 23:31 Dose: 4 mg - Exam General: Reports: Alert, Oriented, Cooperative, No Acute Distress Lungs: Reports: Clear to Auscultation, Normal Respiratory Effort Cardiovascular: Reports: Regular Rate, Regular Rhythm GI/Abdominal Exam: Normal Bowel Sounds, Soft, Non-Tender, No Distention Extremities: Normal Inspection. No: No Pedal Edema <Raymundo Avelar - Last Filed: 11/19/18 10:09> Discharge Summary - Hospital Course HPI Initial Comments: I have examined the patient independently of medical referral coordinator, Dr. Jennie MD. I have discussed the case with him. I have reviewed and agree with the examination and plan as outlined by him. Please see orders. - Patient Data Vitals - Most Recent: Last Vital Signs Temp 36.7 C 11/19/18 08:30 Pulse 80 11/19/18 08:30 Resp 16 11/19/18 08:30 BP 136/75 11/19/18 08:30 Pulse Ox 96 11/19/18 08:30 I&O - Last 24 hours: Intake & Output 11/18/18 11/19/18 11/19/18 22:59 06:59 14:59 Intake Total 2817 2790 Output Total 3100 2400 Balance -283 390 Lab Results - Last 24 hrs: Laboratory Results - last 24 hr 11/19/18 11/19/18 Range/Units 05:23 05:23 WBC 14.64 H (4.0-11.0) K/uL RBC 4.29 L (4.30-5.90) M/uL Hgb 13.1 (12.0-16.0) g/dL Hct 40.8 (36.0-46.0) % MCV 95.1 (80.0-98.0) fL MCH 30.5 (27.0-32.0) pg MCHC 32.1 (31.0-37.0) g/dL RDW Std Deviation 46.6 (28.0-62.0) fl RDW Coeff of Kourtney 13 (11.0-15.0) % Plt Count 211 (150-400) K/uL MPV 10.20 (7.40-12.00) fL Neut % (Auto) 71.1 (48.0-80.0) % Lymph % (Auto) 17.3 (16.0-40.0) % [place] % (Auto) 8.4 (0.0-15.0) % Eos % (Auto) 2.9 (0.0-7.0) % Baso % (Auto) 0.3 (0.0-1.5) % Neut # (Auto) 10.4 H (1.4-5.7) K/uL Lymph # (Auto) 2.5 H (0.6-2.4) K/uL [place] # (Auto) 1.2 H (0.0-0.8) K/uL Eos # (Auto) 0.4 (0.0-0.7) K/uL Baso # (Auto) 0.1 (0.0-0.1) K/uL Nucleated RBC % 0.0 /100WBC Nucleated RBCs # 0 K/uL Sodium 145 (136-145) mmol/L Potassium 4.3 (3.5-5.1) mmol/L Chloride 113 H (98-107) mmol/L Carbon Dioxide 23.9 (21.0-32.0) mmol/L BUN 14 (7.0-18.0) mg/dL Creatinine 1.2 H (0.6-1.0) mg/dL Est Cr Clr Drug Dosing 56.46 mL/min Estimated GFR (MDRD) 47.0 ml/min Glucose 93 (74-106) mg/dL Calcium 9.2 (8.5-10.1) mg/dL [facility]EYAD Results - Last 24 hrs: Microbiology 11/18/18 22:00 Gram Stain - Final Sputum - Expectorated 11/17/18 23:35 Aerobic Blood Culture - Preliminary Blood - Venous - Lab Draw NO GROWTH AFTER 1 DAY Anaerobic Blood Culture - Preliminary NO GROWTH AFTER 1 DAY 11/17/18 23:25 Aerobic Blood Culture - Preliminary Blood - Venous NO GROWTH AFTER 1 DAY Anaerobic Blood Culture - Preliminary NO GROWTH AFTER 1 DAY 11/18/18 08:45 Group A Streptococcus Rapid Screen - Final Throat NEGATIVE STREP A SCREEN REFERENCE RANGE: NEGATIVE 11/17/18 23:00 Streptococcus pneumoniae Ag Screen - Final Urine 11/17/18 23:00 Legionella Antigen - Final Urine, Clean Catch Med Orders - Current: Current Medications Aspirin (Aspirin) 81 mg PO DAILY [facility] Last Admin: 11/19/18 08:27 Dose: 81 mg Atorvastatin Calcium (Lipitor) 40 mg PO BEDTIME [facility] Last Admin: 11/18/18 20:59 Dose: 40 mg Sodium Chloride (Normal Saline) 1,000 mls @ 125 mls/hr IV ASDIRECTED [facility] Last Admin: 11/19/18 06:53 Dose: 125 mls/hr Levofloxacin/Dextrose 750 mg/ (Premix) 150 mls @ 100 mls/hr IV Q24H [facility] Last Admin: 11/19/18 08:30 Dose: 100 mls/hr Ondansetron HCl (Zofran) 4 mg IVPUSH Q4H PRN PRN Reason: Nausea/Vomiting Discontinued Medications Sodium Chloride (Normal Saline) 1,000 mls @ 999 mls/hr IV BOLUS ONE Stop: 11/18/18 00:02 Last Admin: 11/17/18 23:29 Dose: 999 mls/hr Levofloxacin/Dextrose 750 mg/ (Premix) 150 mls @ 100 mls/hr IV ONETIME ONE Stop: 11/18/18 01:33 Last Admin: 11/18/18 00:28 Dose: 100 mls/hr Levofloxacin/Dextrose 750 mg/ (Premix) 150 mls @ 100 mls/hr IV ONETIME ONE Stop: 11/19/18 02:29 Ketorolac Tromethamine (Toradol) 60 mg IVPUSH ONETIME ONE Stop: 11/17/18 23:03 Last Admin: 11/17/18 23:33 Dose: Not Given Losartan Potassium (Cozaar) 50 mg PO BID [facility] Last Admin: 11/18/18 08:43 Dose: 50 mg Ondansetron HCl (Zofran) 4 mg IVPUSH ONETIME ONE Stop: 11/17/18 23:15 Last Admin: 11/17/18 23:31 Dose: 4 mg
== END 2018-11-19 10:35 | disposition home or self-care (01) ==
LOC: MW.ED 22:39 → MW.MS 11-18 00:04
PROVIDERS: ADMIT Internal Medicine; ATTEND Internal Medicine
DX: J18.9 Pneumonia, unspecified organism (principal); E78.00 Pure hypercholesterolemia, unspecified; I10 Essential (primary) hypertension; K21.9 Gastro-esophageal reflux disease without esophagitis; D72.829 Elevated white blood cell count, unspecified; N17.9 Acute kidney failure, unspecified; E78.5 Hyperlipidemia, unspecified; F17.210 Nicotine dependence, cigarettes, uncomplicated; E66.9 Obesity, unspecified; Z68.34 Body mass index [BMI] 34.0-34.9, adult; Z88.8 Allergy status to other drugs, medicaments and biological substances; Z79.899 Other long term (current) drug therapy; Z79.82 Long term (current) use of aspirin; Z91.048 Other nonmedicinal substance allergy status
CPT/HCPCS: 36415; 71046; 80048; 80053; 81001; 82570; 83605; 84300; 84484; 85025; 85379; 86308; 87040; 87070; 87081; 87205; 87804; 87880; 87899; 93005; 96361; 96365; 96366; 96375; 99284; A9270; G0378; J1956; J2405; J7040; 96374; 99285

== ENCOUNTER 2020-11-09 04:23 | Observation (INO) | payer OTHER ==
[2020-11-09] MEDS ORDERED: Sodium Chloride 0.9% 2.5 ML Syringe FLUSH PRN ×2 (04:31→08:44)
[2020-11-09] MEDS ORDERED: Morphine 4 MG/ML Syringe IVPUSH ONE (04:31)
[2020-11-09] MEDS ORDERED: Sodium Chloride 0.9% 10 ML Syringe FLUSH PRN (04:31)
[2020-11-09] MEDS ORDERED: Ondansetron 4 MG/2 ML SDV IVPUSH ONE (04:31)
[2020-11-09] MEDS ORDERED: Aspirin 81 MG Tab.Chew PO ONE (04:32)
--- NOTE | 2020-11-09 04:37 | EDM.PDOC ---
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 Some minimal nausea no lightheadedness or dizziness no shortness of breath. The pain does not get worse with deep breaths. She thought maybe it was GERD and drink some milk but this did not change the pain one way or the other. No palpitations. No prior history of similar episodes. Epigastric Pain Score (Numeric/FACES): 9 - Related Data Allergies Allergy/AdvReac Type Severity Reaction Status Date / Time animal dander Allergy Shortness Verified 11/18/18 01:32 of Breath lisinopril Allergy Cough Verified 11/09/20 04:32 NSAIDS (Non-Steroidal Allergy Renal Verified 11/18/18 01:32 Anti-Inflamma Insufficiency spironolactone Allergy Hives Verified 11/18/18 01:32 [From Aldactone] Home Meds: Home Meds Furosemide 40 mg PO DAILY 08/02/15 [History] atorvaSTATin Calcium [Atorvastatin Calcium] 40 mg PO BEDTIME 08/02/15 [History] Aspirin [Joanne Chewable Aspirin] 81 mg PO DAILY 09/09/16 [History] Losartan [Cozaar] 50 mg PO BID 09/09/16 [History] Loratadine/Pseudoephedrine [Loratadine-D 24Hr Tablet] 1 each PO DAILY PRN 11/18/18 [History] Multivitamin with Minerals [Multiple Vitamin] 1 tab PO DAILY 11/18/18 [History] Omeprazole 20 mg PO DAILY 11/09/20 [History] Tacrolimus [Prograf] 3 mg PO BID 11/09/20 [History] Venlafaxine [Effexor XR] 150 mg PO DAILY 11/09/20 [History] amLODIPine [Norvasc] 5 mg PO BID 11/09/20 [History] predniSONE 15 mg PO DAILY 11/09/20 [History] Past Medical History HEENT History: Reports: None Cardiovascular History: Reports: High Cholesterol, Hypertension Respiratory History: Reports: Bronchitis, Recurrent Gastrointestinal History: Reports: GERD Other Gastrointestinal History: occasional heartburn Genitourinary History: Reports: Renal Disease 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: Musculoskeletal History: Reports: None Neurological History: Reports: None Psychiatric History: Reports: Anxiety, Depression Endocrine/Metabolic History: Reports: Obesity/BMI 30+ Hematologic History: Reports: None Immunologic History: Reports: None Oncologic (Cancer) History: Reports: Malignant Melanoma Other Oncologic History: melanoma Dermatologic History: Reports: Melanoma - Infectious Disease History Infectious Disease History: Reports: Chicken Pox - Past Surgical History Head Surgeries/Procedures: Reports: None Cardiovascular Surgical History: Reports: None GI Surgical History: Reports: Cholecystectomy Female Surgical History: Reports: Section Social & Family History - Family History Family Medical History: No Pertinent Family History - Caffeine Use Caffeine Use: Reports: Coffee ED ROS GENERAL - Review of Systems Review Of Systems: See Below Free Text/Narrative/Comment: General: No fever. Skin: No rash. Eyes: No vision problems. ENT: No sore throat. Neck: No neck stiffness. Respiratory: No shortness of breath. Cardiac: Per HPI Gastrointestinal: No nausea, vomiting or abdominal pain. Musculoskeletal: No myalgias/arthralgias. Neurologic: No headache. ED EXAM, GENERAL - Physical Exam Exam: See Below Free Text/Narrative:: General Appearance: No acute distress, appears comfortable Skin: No rash HEENT: Normocephalic/atraumatic, sclera anicteric, mucous membranes moist Neck: Normal range of motion Chest and Lungs: Bilateral breath sounds, clear to auscultation Cardiovascular: Regular rate and rhythm, no murmur Abdomen: Soft, non-tender Back: Normal Musculoskeletal: No edema or tenderness Neurologic: Awake, alert, no obvious deficits, moving all extremities Psychiatric: Appropriate, cooperative #1 Interpretation EKG Date: 11/09/20 Time: 04:33 EKG Interpretation Comments: Sinus rhythm rate of 77. Normal axis and intervals no acute ischemia. Departure - Departure Disposition: Refer to Observation Clinical Impression: Chest pain Qualifiers: Chest pain type: unspecified Qualified Code(s): R07.9 - Chest pain, unspecified - Discharge Information Referrals: PCP,None [Primary Care Provider] - Forms: ED Department Discharge Sepsis Event Note (ED) - Evaluation Sepsis Screening Result: No Definite Risk - Assessment/Plan Assessment:: Pain does radiate to the back but it is not tearing. 55-year-old female presenting with crushing chest pain. EKG is without acute ischemia. Vital signs are stable. The pain does radiate to the back and aortic dissection considered. The pain is not tearing and I think this is less likely. Chest x- ray to evaluate mediastinal shape will obtain blood pressures in both arms as well. GERD is possible though it did not improve with milk. This is diagnosis of exclusion at this point. Though EKG is without ischemia need to consider ACS and aspirin morphine Zofran will be provided. Patient has no epigastric tenderness she has no right upper quadrant tenderness since she is status post cholecystectomy so biliary pathology is felt unlikely. Heart score will be calculated. Final disposition pending initial results and response to therapy. There is no tachycardia or hypoxia no pleuritic component to this no shortness of breath PE is felt unlikely. 0440: Blood pressure is quite elevated but equal bilaterally. We will add nitroglycerin and reassess. 0510: Patient has a significant leukocytosis that likely reflects the prednisone that she is on for her FSGS. 0530: Patient had excellent symptom response to the nitroglycerin and Zofran and morphine. Patient currently symptom-free. Labs remain pending. Heart score is moderate risk and given this I would favor admission for serial enzymes and assessment. We await initial lab results. 0612: Labs with normal first troponin. Patient's pain is starting to come back now 6 out of 10. Will give sublingual nitro dose and assess response. Recommended patient stay for serial enzymes and ACS rule out as HEART score is 4. Patient amenable to that at this time. 2nd trop due at 0630. Patient does note that she had a normal stress test in April of this year. If nitro does not improve her pain could trial GI cocktail as another diagnostic modality 0640: No change in pain with nitro, will trial GI cocktail. <Ezio Vickers - Last Filed: 11/09/20 07:40> Course - Vital Signs Last Recorded V/S: Last Vital Signs Temp 97.3 F 11/09/20 07:33 Pulse 82 11/09/20 07:33 Resp 15 11/09/20 07:33 BP 128/85 11/09/20 07:33 Pulse Ox 94 L 11/09/20 07:33 - Orders/Labs/Meds Orders: Active Orders 24 hr Category Date Time Status Sodium Chloride 0.9% [Saline Flush] Med 11/09/20 04:31 Active 10 ml FLUSH ASDIRECTED PRN Sodium Chloride 0.9% [Saline Flush] Med 11/09/20 04:31 Active 2.5 ml FLUSH ASDIRECTED PRN Saline Lock Insert [OM.PC] Stat Oth 11/09/20 04:31 Ordered Medication Orders Sodium Chloride (Sodium Chloride 0.9% 10 Ml Syringe) 10 ml FLUSH ASDIRECTED PRN PRN Reason: Keep Vein Open Sodium Chloride (Sodium Chloride 0.9% 2.5 Ml Syringe) 2.5 ml FLUSH ASDIRECTED PRN PRN Reason: Keep Vein Open Labs: Laboratory Tests 11/09/20 11/09/20 11/09/20 Range/Units 04:25 04:25 06:40 WBC 20.33 H (4.0-11.0) K/uL RBC 4.93 (4.30-5.90) M/uL Hgb 15.7 (12.0-16.0) g/dL Hct 45.8 (36.0-46.0) % MCV 92.9 (80.0-98.0) fL MCH 31.8 (27.0-32.0) pg MCHC 34.3 (31.0-37.0) g/dL RDW Std Deviation 47.3 (28.0-62.0) fl RDW Coeff of Kourtney 14 (11.0-15.0) % Plt Count 290 (150-400) K/uL MPV 9.60 (7.40-12.00) fL Neut % (Auto) 65.6 (48.0-80.0) % Lymph % (Auto) 24.8 (16.0-40.0) % [place] % (Auto) 8.1 (0.0-15.0) % Eos % (Auto) 1.3 (0.0-7.0) % Baso % (Auto) 0.2 (0.0-1.5) % Neut # (Auto) 13.3 H (1.4-5.7) K/uL Lymph # (Auto) 5.0 H (0.6-2.4) K/uL [place] # (Auto) 1.7 H (0.0-0.8) K/uL Eos # (Auto) 0.3 (0.0-0.7) K/uL Baso # (Auto) 0.0 (0.0-0.1) K/uL Nucleated RBC % 0.0 /100WBC Nucleated RBCs # 0 K/uL Sodium 141 (136-145) mmol/L Potassium 4.0 (3.5-5.1) mmol/L Chloride 107 (98-107) mmol/L Carbon Dioxide 26.0 (21.0-32.0) mmol/L BUN 28 H (7.0-18.0) mg/dL Creatinine 2.1 H (0.6-1.0) mg/dL Est Cr Clr Drug Dosing 31.63 mL/min Estimated GFR (MDRD) 24.5 ml/min Glucose 82 (74-106) mg/dL Calcium 8.6 (8.5-10.1) mg/dL Total Bilirubin 0.3 (0.2-1.0) mg/dL AST 13 L (15-37) IU/L ALT 21 (14-63) IU/L Alkaline Phosphatase 79 (46-116) U/L Troponin I < 0.050 < 0.050 (0.000-0.056) ng/mL Total Protein 6.3 L (6.4-8.2) g/dL Albumin 3.1 L (3.4-5.0) g/dL Globulin 3.2 (2.6-4.0) g/dL Albumin/Globulin Ratio 1.0 (0.9-1.6) Meds: Medications Generic Name Dose Route Start Last Admin Trade Name Freq PRN Reason Stop Dose Admin Sodium Chloride 10 ml 11/09/20 04:31 Sodium Chloride 0.9% 10 Ml Syringe FLUSH ASDIRECTED PRN Keep Vein Open Sodium Chloride 2.5 ml 11/09/20 04:31 Sodium Chloride 0.9% 2.5 Ml Syringe FLUSH ASDIRECTED PRN Keep Vein Open Discontinued Medications Generic Name Dose Route Start Last Admin Trade Name Freq PRN Reason Stop Dose Admin Aspirin 324 mg 11/09/20 04:32 11/09/20 04:37 Aspirin 81 Mg Tab.Chew PO 11/09/20 04:33 324 mg ONETIME ONE Administration Al Hydroxide/Mg Hydroxide 15 0 ml 11/09/20 06:40 11/09/20 06:48 ml/ Lidocaine HCl 5 ml PO 11/09/20 06:41 20 each ONETIME ONE Administration Morphine Sulfate 4 mg 11/09/20 04:31 11/09/20 04:39 Morphine 4 Mg/Ml Syringe IVPUSH 11/09/20 04:32 4 mg ONETIME ONE Administration Nitroglycerin 0.4 mg 11/09/20 04:39 11/09/20 06:14 Nitroglycerin 0.4 Mg Tab.Sl SL 0.4 mg Q5M PRN Administration Chest Pain Nitroglycerin Confirm 11/09/20 04:41 11/09/20 04:44 Nitroglycerin 0.4 Mg Tab.Sl Administered 11/09/20 04:42 Not Given Dose 0.4 mg .ROUTE .STK-MED ONE Ondansetron HCl 4 mg 11/09/20 04:31 11/09/20 04:39 Ondansetron 4 Mg/2 Ml Sdv IVPUSH 11/09/20 04:32 4 mg ONETIME ONE Administration - Re-Assessments/Exams Free Text/Narrative Re-Assessment/Exam: 11/09/20 07:39 Patient's repeat troponin remains negative. Given her HEART score of 4 and concerning symptoms, she will be admitted for chest pain observation. Dr. Lau agrees to accept the admission and patient agrees with plan. She notes a mild dull-aching sensation in her chest but no longer with pain Departure - Departure Time of Disposition: 07:39 Condition: Good Sepsis Event Note (ED) - Focused Exam Vital Signs: Vital Signs Temp Pulse Resp BP BP BP Pulse Ox 11/09/20 07:33 97.3 F 82 15 128/85 94 L 11/09/20 06:49 97.1 F 77 18 124/80 97 11/09/20 06:14 125/80 11/09/20 05:04 134/76 11/09/20 04:51 148/90 H 11/09/20 04:44 168/103 H 11/09/20 04:39 168/103 H 11/09/20 04:29 97.8 F 79 20 178/102 H 100
[2020-11-09] MEDS ORDERED: Nitroglycerin 0.4 MG Tab.SL ONE (04:41)
[2020-11-09] MEDS: Nitroglycerin 0.4 MG Tab.SL SL PRN ×3 (04:44→06:14)
[2020-11-09 04:58] LABS: BLOOD UREA NITROGEN,BUN 28 mg/dL (7.0-18.0); CHLORIDE,CL 107 mmol/L (98-107); GLUCOSE RANDOM 82 mg/dL (74-106); SODIUM,NA 141 mmol/L (136-145)
--- NOTE | 2020-11-09 05:55 | CR ---
INDICATION: Chest pain TECHNIQUE: Chest 1 views COMPARISON: November 17, 2018 FINDINGS: Cardiovascular and mediastinum: Heart size and vasculature are normal in caliber and appearance. Lungs and pleural spaces: Lungs are clear. No sign of infiltrate or mass. No sign of pleural effusion. No pneumothorax. Bones and soft tissues: No significant findings. IMPRESSION: No acute findings and no significant changes from the prior exam. Dictated by Antonio Guevara MD @ 11/09/2020 5:55:[address] Antonio Guevara @ Nov 09 2020 5:55AM
[2020-11-09] MEDS ORDERED: Alum Hydrox/Mag Hydrox/Simeth 15 ML, Lidocaine 2% 5 ML PO ONE ×2 (06:40)
[2020-11-09] MEDS ORDERED: Acetaminophen 325 MG Tab PO PRN (08:44)
[2020-11-09] MEDS ORDERED: Ondansetron 4 MG/2 ML SDV IVPUSH PRN (08:44)
[2020-11-09] MEDS ORDERED: Albuterol/Ipratropium 3.0-0.5 MG/3 ML Neb Soln NEB PRN (08:44)
--- NOTE | 2020-11-09 08:44 | PCM.HP.2 ---
H&P History of Present Illness - General Date of Service: 11/09/20 Admit Problem/Dx: Admission Diagnosis/Problem Admission Diagnosis/Problem Chest pain Source of Information: Patient History Limitations: Reports: No Limitations - History of Present Illness Initial Comments - Free Text/Narative: This 55 year old female with pmh of tobacco abuse, FSGS on Prograf and prednison e, HTN, and HLD presented to the ED with complaints of midsternal chest pain that woke her up from sleep approximately 90 minutes prior to arrival in the ED. She reports she has been feeling otherwise well prior to this. She reports the pain as crushing radiating to the back, denies other associated symptoms such as nausea, vomiting or diaphoresis. She attempted drinking milk and eating bread as she thought this was indigestion, neither of these worked. She denies SOB or palpitations and no radiation to her neck or arms. She reports nothing made it worse or better in particular. She felt the nitro in the ER did not help but the GI cocktail helped the most. She is reporting the pain is no2-3/10 and feeling hungry. She ate jalapeno chips yesterday. She denies URI symptoms, no fever or chills, no SOB, no abdominal pain, no diarrhea or constipation. No black or bloody BMs. She smokes approximately 10 cigarettes daily, no alcohol use and no recreational drug use. reports she had a stress test in April which was negative. In the ED, leukocytosis noted at 20,000, hgb stable. BUN 28 Cr 2.1 which is elevated from baseline. Troponin x 2 negative. EKG SR with no acute ischemic changes. BP initially elevated, but improved with pain control with GI cocktail. CXR negative. She will be admitted for chest pain ACS rule out. PCP, Dr Leon. Epigastric Pain Score (Numeric/FACES): 5 - Related Data Allergies/Adverse Reactions: Allergies Allergy/AdvReac Type Severity Reaction Status Date / Time animal dander Allergy Shortness Verified 11/09/20 09:02 of Breath lisinopril Allergy Cough Verified 11/09/20 09:02 NSAIDS (Non-Steroidal Allergy Renal Verified 11/09/20 09:02 Anti-Inflamma Insufficiency spironolactone Allergy Hives Verified 11/09/20 09:02 [From Aldactone] Home Medications: Home Meds Furosemide 40 mg PO DAILY 08/02/15 [History] atorvaSTATin Calcium [Atorvastatin Calcium] 20 mg PO BEDTIME 08/02/15 [History] Aspirin [Joanne Chewable Aspirin] 81 mg PO DAILY 09/09/16 [History] Losartan [Cozaar] 50 mg PO BID 09/09/16 [History] Loratadine/Pseudoephedrine [Loratadine-D 24Hr Tablet] 1 each PO DAILY PRN 11/18/18 [History] Multivitamin with Minerals [Multiple Vitamin] 1 tab PO DAILY 11/18/18 [History] Omeprazole 20 mg PO DAILY 11/09/20 [History] Tacrolimus [Prograf] 3 mg PO BID 11/09/20 [History] Venlafaxine [Effexor XR] 150 mg PO DAILY 11/09/20 [History] amLODIPine [Norvasc] 2.5 mg PO BID 11/09/20 [History] predniSONE 15 mg PO DAILY 11/09/20 [History] Past Medical History HEENT History: Reports: None Cardiovascular History: Reports: High Cholesterol, Hypertension Respiratory History: Reports: Bronchitis, Recurrent Gastrointestinal History: Reports: GERD Other Gastrointestinal History: occasional heartburn Genitourinary History: Reports: Renal Disease 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 History: Reports: None Neurological History: Reports: None Psychiatric History: Reports: Anxiety, Depression Endocrine/Metabolic History: Reports: Obesity/BMI 30+ Hematologic History: Reports: None Immunologic History: Reports: None Oncologic (Cancer) History: Reports: Malignant Melanoma Other Oncologic History: melanoma Dermatologic History: Reports: Melanoma - Infectious Disease History Infectious Disease History: Reports: Chicken Pox - Past Surgical History Head Surgeries/Procedures: Reports: None Cardiovascular Surgical History: Reports: None GI Surgical History: Reports: Cholecystectomy Female Surgical History: Reports: Section Social & Family History - Family History Family Medical History: No Pertinent Family History - Caffeine Use Caffeine Use: Reports: Coffee - Recreational Drug Use Recreational Drug Use: No H&P Review of Systems - Review of Systems: Review Of Systems: See Below General: Reports: No Symptoms. Denies: Fever, Chills, Malaise, Weakness HEENT: Reports: No Symptoms. Denies: Headaches, Sinus Congestion, Sore Throat, Vertigo Pulmonary: Reports: No Symptoms. Denies: Shortness of Breath Cardiovascular: Reports: No Symptoms, Chest Pain (midsternal to epigastric) Gastrointestinal: Reports: Abdominal Pain (scant epigastric tenderness, much improved since arrival to ED). Denies: Black Stool, Bloody Stool, Nausea, Vomiting Genitourinary: Reports: No Symptoms. Denies: Dysuria, Frequency, Burning Musculoskeletal: Reports: No Symptoms. Denies: Neck Pain Skin: Reports: No Symptoms Psychiatric: Reports: No Symptoms. Denies: Anxiety Neurological: Reports: No Symptoms Hematologic/Lymphatic: Reports: No Symptoms Immunologic: Reports: No Symptoms Exam - Exam Exam: See Below - Vital Signs Vital Signs: Last Vital Signs Temp 97.3 F 11/09/20 07:33 Pulse 82 11/09/20 07:33 Resp 15 11/09/20 07:33 BP 128/85 11/09/20 07:33 Pulse Ox 94 L 11/09/20 07:33 Weight: 99.79 kg - Exam General: Alert, Oriented, Cooperative Neck: Supple Lungs: Clear to Auscultation, Normal Respiratory Effort Cardiovascular: Regular Rate, Regular Rhythm GI/Abdominal Exam: Normal Bowel Sounds, Soft, Tender (scant tenderness ) Back Exam: Normal Inspection, Full Range of Motion Extremities: Normal Inspection, Normal Range of Motion, Non-Tender, No Pedal Edema Neuro Extensive - Mental Status: Alert, Oriented x3, Normal Mood/Affect Psychiatric: Alert, Normal Affect, Normal Mood - Patient Data Lab Results Last 24 hrs: Laboratory Results - last 24 hr 11/09/20 11/09/20 11/09/20 Range/Units 04:25 04:25 06:40 WBC 20.33 H (4.0-11.0) K/uL RBC 4.93 (4.30-5.90) M/uL Hgb 15.7 (12.0-16.0) g/dL Hct 45.8 (36.0-46.0) % MCV 92.9 (80.0-98.0) fL MCH 31.8 (27.0-32.0) pg MCHC 34.3 (31.0-37.0) g/dL RDW Std Deviation 47.3 (28.0-62.0) fl RDW Coeff of Kourtney 14 (11.0-15.0) % Plt Count 290 (150-400) K/uL MPV 9.60 (7.40-12.00) fL Neut % (Auto) 65.6 (48.0-80.0) % Lymph % (Auto) 24.8 (16.0-40.0) % [place] % (Auto) 8.1 (0.0-15.0) % Eos % (Auto) 1.3 (0.0-7.0) % Baso % (Auto) 0.2 (0.0-1.5) % Neut # (Auto) 13.3 H (1.4-5.7) K/uL Lymph # (Auto) 5.0 H (0.6-2.4) K/uL [place] # (Auto) 1.7 H (0.0-0.8) K/uL Eos # (Auto) 0.3 (0.0-0.7) K/uL Baso # (Auto) 0.0 (0.0-0.1) K/uL Nucleated RBC % 0.0 /100WBC Nucleated RBCs # 0 K/uL Sodium 141 (136-145) mmol/L Potassium 4.0 (3.5-5.1) mmol/L Chloride 107 (98-107) mmol/L Carbon Dioxide 26.0 (21.0-32.0) mmol/L BUN 28 H (7.0-18.0) mg/dL Creatinine 2.1 H (0.6-1.0) mg/dL Est Cr Clr Drug Dosing 31.63 mL/min Estimated GFR (MDRD) 24.5 ml/min Glucose 82 (74-106) mg/dL Calcium 8.6 (8.5-10.1) mg/dL Total Bilirubin 0.3 (0.2-1.0) mg/dL AST 13 L (15-37) IU/L ALT 21 (14-63) IU/L Alkaline Phosphatase 79 (46-116) U/L Troponin I < 0.050 < 0.050 (0.000-0.056) ng/mL Total Protein 6.3 L (6.4-8.2) g/dL Albumin 3.1 L (3.4-5.0) g/dL Globulin 3.2 (2.6-4.0) g/dL Albumin/Globulin Ratio 1.0 (0.9-1.6) Result Diagrams: 11/09/20 04:25 11/09/20 04:25 Sepsis Event Note - Evaluation Sepsis Screening Result: No Definite Risk - Focused Exam Vital Signs: Vital Signs Temp Pulse Resp BP BP BP Pulse Ox 11/09/20 07:33 97.3 F 82 15 128/85 94 L 11/09/20 06:49 97.1 F 77 18 124/80 97 11/09/20 06:14 125/80 11/09/20 05:04 134/76 11/09/20 04:51 148/90 H 11/09/20 04:44 168/103 H 11/09/20 04:39 168/103 H 11/09/20 04:29 97.8 F 79 20 178/102 H 100 - Problem List (1) Chest pain SNOMED Code(s): 80056526 ICD Code: R07.9 - CHEST PAIN, UNSPECIFIED Status: Acute Current Visit: Yes Qualifiers: Chest pain type: unspecified Qualified Code(s): R07.9 - Chest pain, unspecified (2) HTN (hypertension) SNOMED Code(s): 13732374 ICD Code: I10 - ESSENTIAL (PRIMARY) HYPERTENSION Status: Chronic Current Visit: Yes (3) HLD (hyperlipidemia) SNOMED Code(s): 29399639 ICD Code: E78.5 - HYPERLIPIDEMIA, UNSPECIFIED Status: Chronic Current Visit: Yes (4) FSGS (focal segmental glomerulosclerosis) SNOMED Code(s): 208150487 ICD Code: N05.1 - UNSP NEPH SYNDROME W FOCAL AND SEGMENTAL GLOMERULAR LESIONS Status: Chronic Current Visit: Yes (5) CKD (chronic kidney disease) SNOMED Code(s): 595601146 ICD Code: N18.9 - CHRONIC KIDNEY DISEASE, UNSPECIFIED Status: Chronic Current Visit: Yes (6) Tobacco abuse SNOMED Code(s): 913584527 ICD Code: Z72.0 - TOBACCO USE Status: Chronic Current Visit: Yes (7) Leukocytosis SNOMED Code(s): 876449937, 375979867 ICD Code: D72.829 - ELEVATED WHITE BLOOD CELL COUNT, UNSPECIFIED Status: Acute Current Visit: No Qualifiers: Leukocytosis type: unspecified Qualified Code(s): D72.829 - Elevated white blood cell count, unspecified (8) FARSHAD (acute kidney injury) SNOMED Code(s): 26864044, 38726247 ICD Code: N17.9 - ACUTE KIDNEY FAILURE, UNSPECIFIED Status: Acute Current Visit: Yes Problem List Initiated/Reviewed/Updated: Yes Orders Last 24hrs: Active Orders 24 hr Category Date Time Status Patient Status [ADT] Routine ADT 11/09/20 07:40 Active Sodium Chloride 0.9% [Saline Flush] Med 11/09/20 04:31 Active 10 ml FLUSH ASDIRECTED PRN Sodium Chloride 0.9% [Saline Flush] Med 11/09/20 04:31 Active 2.5 ml FLUSH ASDIRECTED PRN Saline Lock Insert [OM.PC] Stat Oth 11/09/20 04:31 Ordered Medication Orders Sodium Chloride (Sodium Chloride 0.9% 10 Ml Syringe) 10 ml FLUSH ASDIRECTED PRN PRN Reason: Keep Vein Open Sodium Chloride (Sodium Chloride 0.9% 2.5 Ml Syringe) 2.5 ml FLUSH ASDIRECTED PRN PRN Reason: Keep Vein Open Assessment/Plan Comment:: This 55 year old female admitted with chest pain rule out ACS 1. Chest pain - Troponins x 2 negative in ER - Will give dose of protonix, check H pylori. High risk for gastritis/ulcer with chronic steroid use. Is on Omeprazole - Monitor on telemetry - reports labwork just obtained at [facility] with Dr Leon, - Lipid panel reveals Tri 222, HDL 45 LDL 100, will check TSH and A1c - Counseled on tobacco use and cessation 2. Leukocytosis: - Could be due to home steroids - Will repeat at 12:45 - Consider imaging chest, abd and pelvis if remains elevated. 3. HTN/HLD - Continue home medications, hold Losartan and Lasix due to FARSHAD 4. FSGS/CKD - Continue Prograf and prednisone - Check baseline renal function, reports recent GFR 30 and Cr 1.5 - Give 500 ml IVF now, Hold losartan and Lasix VTE prophylaxis: SCDs and ambulation GI prophylaxis: Protonix CODE STATUS: Full code Dispo: 1 day - Mortality Measure Prognosis:: Good
[2020-11-09] MEDS ORDERED: Pantoprazole 40 MG in Sodium Chloride 0.9% 10 ML IV ONE (09:00)
[2020-11-09] MEDS: amLODIPine 2.5 MG Tab PO SCH ×2 (10:24→20:36)
[2020-11-09] MEDS: Tacrolimus 1 MG Cap PO SCH ×2 (10:24→20:35)
[2020-11-09] MEDS: predniSONE 10 MG Tab PO SCH (10:25)
[2020-11-09] MEDS: Venlafaxine 75 MG Cap.ER PO SCH (10:25)
[2020-11-09] MEDS: Multivitamin Tab PO SCH (10:26)
[2020-11-09] MEDS ORDERED: Sodium Chloride 0.9% 500 ML IV ONE (10:46)
[2020-11-09 12:03] LABS: HEMOGLOBIN A1C 5.8 %
[2020-11-09] MEDS ORDERED: atorvaSTATin 20 MG Tab PO SCH (21:00)
[2020-11-10] MEDS ORDERED: Morphine 2 MG/ML SYRINGE IVPUSH PRN (02:19)
[2020-11-10] MEDS ORDERED: Alum Hydrox/Mag Hydrox/Simeth 15 ML, Lidocaine 2% 5 ML PO PRN ×2 (02:23)
[2020-11-10] MEDS ORDERED: Pantoprazole 40 MG in Sodium Chloride 0.9% 10 ML IV SCH (02:30)
[2020-11-10 06:52] LABS: CARBON DIOXIDE,CO2 25.5 mmol/L (21.0-32.0); POTASSIUM,K 3.9 mmol/L (3.5-5.1)
[2020-11-10] MEDS: predniSONE 10 MG Tab PO SCH (08:10)
[2020-11-10] MEDS: amLODIPine 2.5 MG Tab PO SCH (08:10)
[2020-11-10] MEDS: Venlafaxine 75 MG Cap.ER PO SCH (08:10)
[2020-11-10] MEDS: Multivitamin Tab PO SCH (08:11)
[2020-11-10] MEDS: Tacrolimus 1 MG Cap PO SCH (08:11)
[2020-11-10] MEDS ORDERED: Aspirin 81 MG Tab.Chew PO SCH (09:00)
--- NOTE | 2020-11-10 10:03 | CT ---
INDICATION: Epigastric abdomen pain. TECHNIQUE: CT abdomen and pelvis without contrast. COMPARISON: None. FINDINGS: Lower chest: Unremarkable. Liver: Normal in size and attenuation. No suspicious masses. Gallbladder and bile ducts: Post cholecystectomy. No biliary dilatation. Pancreas: Unremarkable. No mass or inflammation. Spleen: Normal in size. No masses. Adrenal glands: A subcentimeter adenoma is in the left adrenal gland. Kidneys: Normal in size. No suspicious masses, stones, or hydronephrosis. GI tract: Unremarkable. Normal in caliber. No sign of mass or inflammation. Normal appendix. Vasculature: Unremarkable. Lymph nodes: No lymphadenopathy. Abdominal wall/Omentum/Peritoneum: Unremarkable. No sign of mass or infiltration. No free air or significant free fluid. Pelvis: IUD appears in proper position. Pelvic structures otherwise unremarkable. Bones: Bilateral hip joint osteoarthritis of moderate severity. IMPRESSION: No acute or specific finding to explain epigastric abdomen pain. Please note that all CT scans at this facility use dose modulation, iterative reconstruction, and/or weight-based dosing when appropriate to reduce radiation dose to as low as reasonably achievable. Dictated by Antonio Guevara MD @ 11/10/2020 10:03:[address] Antonio Guevara @ Nov 10 2020 10:03AM
[2020-11-10] MEDS ORDERED: Losartan 50 MG Tab PO SCH (10:30)
[2020-11-10] MEDS ORDERED: Furosemide 40 MG Tab PO SCH (10:30)
[2020-11-10] MEDS: Sucralfate Suspension 1 GM/10 ML Cup PO SCH ×2 (11:13→11:14)
[2020-11-10 11:15] VITALS: BP 173/84
[2020-11-10 11:20] VITALS: PULSE 87
--- NOTE | 2020-11-10 12:13 | PCM.DCSUM1 ---
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 She reports she has been feeling otherwise well prior to this. She reports the pain as crushing radiating to the back, denies other associated symptoms such as nausea, vomiting or diaphoresis. She attempted drinking milk and eating bread as she thought this was indigestion, neither of these worked. She denies SOB or palpitations and no radiation to her neck or arms. She reports nothing made it worse or better in particular. She felt the nitro in the ER did not help but the GI cocktail helped the most. She is reporting the pain is no2-3/10 and feeling hungry. She ate jalapeno chips yesterday. She denies URI symptoms, no fever or chills, no SOB, no abdominal pain, no diarrhea or constipation. No black or bloody BMs. She smokes approximately 10 cigarettes daily, no alcohol use and no recreational drug use. reports she had a stress test in April which was negative. In the ED, leukocytosis noted at 20,000, hgb stable. BUN 28 Cr 2.1 which is elevated from baseline. Troponin x 2 negative. EKG SR with no acute ischemic changes. BP initially elevated, but improved with pain control with GI cocktail. CXR negative. She will be admitted for chest pain ACS rule out. Diagnosis: Stroke: No - Discharge Data Discharge Date: 11/10/20 Discharge Disposition: Home, Self-Care 01 Condition: Stable - Referral to Home Health Primary Care Physician: PCP None - Discharge Diagnosis/Problem(s) (1) Chest pain SNOMED Code(s): 39794761 ICD Code: R07.9 - CHEST PAIN, UNSPECIFIED Status: Acute Current Visit: Yes Qualifiers: Chest pain type: unspecified Qualified Code(s): R07.9 - Chest pain, unspecified (2) HTN (hypertension) SNOMED Code(s): 49999915 ICD Code: I10 - ESSENTIAL (PRIMARY) HYPERTENSION Status: Chronic Current Visit: Yes (3) HLD (hyperlipidemia) SNOMED Code(s): 85458289 ICD Code: E78.5 - HYPERLIPIDEMIA, UNSPECIFIED Status: Chronic Current Visit: Yes (4) FSGS (focal segmental glomerulosclerosis) SNOMED Code(s): 931639413 ICD Code: N05.1 - UNSP NEPH SYNDROME W FOCAL AND SEGMENTAL GLOMERULAR LESIONS Status: Chronic Current Visit: Yes (5) CKD (chronic kidney disease) SNOMED Code(s): 922664141 ICD Code: N18.9 - CHRONIC KIDNEY DISEASE, UNSPECIFIED Status: Chronic Current Visit: Yes (6) Tobacco abuse SNOMED Code(s): 561031456 ICD Code: Z72.0 - TOBACCO USE Status: Chronic Current Visit: Yes (7) Leukocytosis SNOMED Code(s): 946935326, 065590637 ICD Code: D72.829 - ELEVATED WHITE BLOOD CELL COUNT, UNSPECIFIED Status: Acute Current Visit: No Qualifiers: Leukocytosis type: unspecified Qualified Code(s): D72.829 - Elevated white blood cell count, unspecified (8) FARSHAD (acute kidney injury) SNOMED Code(s): 19017364, 91069554 ICD Code: N17.9 - ACUTE KIDNEY FAILURE, UNSPECIFIED Status: Acute Current Visit: Yes (9) Gastritis SNOMED Code(s): 2958449 ICD Code: K29.70 - GASTRITIS, UNSPECIFIED, WITHOUT BLEEDING Status: Acute Current Visit: Yes - Patient Summary/Data Hospital Course: Admission diagnoses Chest pain Suspected gastritis Discharge diagnoses Chest pain ACS ruled out Gastritis Other PMH FSGS HLD HTN CKD Patient was admitted secondary to chest pain that was midsternal nitro did not help but did have relief with GI cocktail. Patient feels like this is more indigestion. Due to her heart score patient was monitored overnight and troponins trended. Troponins remained negative EKG shows no signs of acute anemia. Patient had recent stress test in April which was negative. Patient did have repeat episodes of pain which came after she ate but was somewhat relieved from eating. She was continued on Protonix as well as GI cocktail and started on Carafate. Patient had leukocytosis on admission this did decrease slightly yesterday with some IV fluids patient remains afebrile with no signs of infection. Leukocytosis 18,000 today. Again patient remains asymptomatic. CT abdomen pelvis obtained secondary to continued normal and epigastric pain. CT unremarkable. Pain likely secondary to gastritis or PUD. Patient was recently started on Prograf and steroids for FSGS and was attempting 6-week course to see if proteinuria would improve. Patient reported at if this is happening she would likely not continue with steroid dosing she will discuss with Dr. Talley. Patient very eager for discharge home today. We did encourage 1 more night stay due to leukocytosis and monitoring but patient very eager to leave as her son has surgery tomorrow. We will continue PPI but increase this to Protonix 40 mg twice daily for 1 month along with Carafate 4 times a day before meals and at bedtime. She was counseled on bland diet staying away from anything acidic or spicy in nature. She was counseled on symptoms to monitor for infection such as fevers chills shortness of breath or worsening significant abdominal pain. She was also counseled on signs of bleeding such as black tarry stools and or nory bloody stools or nory blood in her emesis. She verbalized understanding. She is to stop her omeprazole at home at this time. Continue all other home medications. She will follow up with Dr. Leon in 7 to 10 days where he could recheck lab work to ensure improvement in leukocytosis. This is likely secondary to chronic steroid use. She is to return to the ER clinic if concerns should arise. - Patient Instructions Diet: GI Soft/Low Residue/Low Fiber (bland, non acidic) Activity: As Tolerated Showering/Bathing: May Shower Notify Provider of: Fever, Increased Pain, Swelling and Redness, Drainage, Nausea and/or Vomiting - Discharge Plan *PRESCRIPTION DRUG MONITORING PROGRAM REVIEWED*: Not Applicable *COPY OF PRESCRIPTION DRUG MONITORING REPORT IN PATIENT FRANCOISE: Not Applicable Prescriptions/Med Rec: Sucralfate [Carafate] 1 gm PO QIDACANDBED #120 tablet GI Cocktail 20 ml PO Q6H PRN #200 ml PRN Reason: Indigestion Pantoprazole Sodium [Protonix] 40 mg PO BID #60 tablet. Home Medications: Home Meds Furosemide 40 mg PO DAILY 08/02/15 [History] atorvaSTATin Calcium [Atorvastatin Calcium] 20 mg PO BEDTIME 08/02/15 [History] Aspirin [Joanne Chewable Aspirin] 81 mg PO DAILY 09/09/16 [History] Losartan [Cozaar] 50 mg PO BID 09/09/16 [History] Loratadine/Pseudoephedrine [Loratadine-D 24Hr Tablet] 1 each PO DAILY PRN 11/18/18 [History] Multivitamin with Minerals [Multiple Vitamin] 1 tab PO DAILY 11/18/18 [History] Tacrolimus [Prograf] 3 mg PO BID 11/09/20 [History] Venlafaxine [Effexor XR] 150 mg PO DAILY 11/09/20 [History] amLODIPine [Norvasc] 2.5 mg PO BID 11/09/20 [History] predniSONE 15 mg PO DAILY 11/09/20 [History] Budesonide/Formoterol [Symbicort 160-4.5 MCG] 1 inh IH BID 11/10/20 [History] Calcitriol 0.5 mcg PO DAILY 11/10/20 [History] GI Cocktail 20 ml PO Q6H PRN #200 ml 11/10/20 [Rx] Pantoprazole Sodium [Protonix] 40 mg PO BID #60 tablet. 11/10/20 [Rx] Sucralfate [Carafate] 1 gm PO QIDACANDBED #120 tablet 11/10/20 [Rx] Oxygen Therapy Mode: Room Air Patient Handouts: Gastritis, Adult, Nonspecific Chest Pain, Adult, [id number], Sucralfate tablets, Pantoprazole tablets Referrals: Dany Leon MD [Ordering Only Provider] - 11/17/20 8:00 am - Discharge Summary/Plan Comment DC Time >30 min.: No - Patient Data Vitals - Most Recent: Last Vital Signs Temp 97.6 F 11/10/20 11:00 Pulse 87 11/10/20 11:00 Resp 20 11/10/20 11:00 BP 173/84 H 11/10/20 11:14 Pulse Ox 98 11/10/20 11:00 Weight - Most Recent: 101.605 kg I&O - Last 24 hours: Intake & Output 11/09/20 11/10/20 11/10/20 22:59 06:59 14:59 Intake Total 1200 1800 Output Total 1400 2600 Balance -200 -800 Lab Results - Last 24 hrs: Laboratory Results - last 24 hr 11/09/20 11/09/20 11/09/20 Range/Units 04:25 04:25 13:00 WBC (4.0-11.0) K/uL RBC (4.30-5.90) M/uL Hgb (12.0-16.0) g/dL Hct (36.0-46.0) % MCV (80.0-98.0) fL MCH (27.0-32.0) pg MCHC (31.0-37.0) g/dL RDW Std Deviation (28.0-62.0) fl RDW Coeff of Kourtney (11.0-15.0) % Plt Count (150-400) K/uL MPV (7.40-12.00) fL Neut % (Auto) (48.0-80.0) % Lymph % (Auto) (16.0-40.0) % [place] % (Auto) (0.0-15.0) % Eos % (Auto) (0.0-7.0) % Baso % (Auto) (0.0-1.5) % Neut # (Auto) (1.4-5.7) K/uL Lymph # (Auto) (0.6-2.4) K/uL [place] # (Auto) (0.0-0.8) K/uL Eos # (Auto) (0.0-0.7) K/uL Baso # (Auto) (0.0-0.1) K/uL Nucleated RBC % /100WBC Nucleated RBCs # K/uL Sodium (136-145) mmol/L Potassium (3.5-5.1) mmol/L Chloride (98-107) mmol/L Carbon Dioxide (21.0-32.0) mmol/L BUN (7.0-18.0) mg/dL Creatinine (0.6-1.0) mg/dL Est Cr Clr Drug Dosing mL/min Estimated GFR (MDRD) ml/min Glucose (74-106) mg/dL Hemoglobin A1c 5.8 (4.5 - 6.2) % Calcium (8.5-10.1) mg/dL Troponin I < 0.050 (0.000-0.056) ng/mL Free T4 1.07 (0.76-1.46) ng/dL TSH, Ultra Sensitive 4.41 H (0.36-3.74) uIU/mL 11/09/20 11/09/20 11/10/20 Range/Units 13:00 18:52 06:04 WBC 14.80 H 18.99 H (4.0-11.0) K/uL RBC 4.35 4.34 (4.30-5.90) M/uL Hgb 13.9 13.6 (12.0-16.0) g/dL Hct 40.6 40.3 (36.0-46.0) % MCV 93.3 92.9 (80.0-98.0) fL MCH 32.0 31.3 (27.0-32.0) pg MCHC 34.2 33.7 (31.0-37.0) g/dL RDW Std Deviation 47.8 46.6 (28.0-62.0) fl RDW Coeff of Kourtney 14 14 (11.0-15.0) % Plt Count 259 264 (150-400) K/uL MPV 9.80 9.90 (7.40-12.00) fL Neut % (Auto) 78.8 71.2 (48.0-80.0) % Lymph % (Auto) 13.0 L 19.5 (16.0-40.0) % [place] % (Auto) 6.4 8.1 (0.0-15.0) % Eos % (Auto) 1.5 1.0 (0.0-7.0) % Baso % (Auto) 0.3 0.2 (0.0-1.5) % Neut # (Auto) 11.7 H 13.5 H (1.4-5.7) K/uL Lymph # (Auto) 1.9 3.7 H (0.6-2.4) K/uL [place] # (Auto) 1.0 H 1.5 H (0.0-0.8) K/uL Eos # (Auto) 0.2 0.2 (0.0-0.7) K/uL Baso # (Auto) 0.0 0.0 (0.0-0.1) K/uL Nucleated RBC % 0.0 0.0 /100WBC Nucleated RBCs # 0 0 K/uL Sodium (136-145) mmol/L Potassium (3.5-5.1) mmol/L Chloride (98-107) mmol/L Carbon Dioxide (21.0-32.0) mmol/L BUN (7.0-18.0) mg/dL Creatinine (0.6-1.0) mg/dL Est Cr Clr Drug Dosing mL/min Estimated GFR (MDRD) ml/min Glucose (74-106) mg/dL Hemoglobin A1c (4.5 - 6.2) % Calcium (8.5-10.1) mg/dL Troponin I < 0.050 (0.000-0.056) ng/mL Free T4 (0.76-1.46) ng/dL TSH, Ultra Sensitive (0.36-3.74) uIU/mL 11/10/20 Range/Units 06:04 WBC (4.0-11.0) K/uL RBC (4.30-5.90) M/uL Hgb (12.0-16.0) g/dL Hct (36.0-46.0) % MCV (80.0-98.0) fL MCH (27.0-32.0) pg MCHC (31.0-37.0) g/dL RDW Std Deviation (28.0-62.0) fl RDW Coeff of Kourtney (11.0-15.0) % Plt Count (150-400) K/uL MPV (7.40-12.00) fL Neut % (Auto) (48.0-80.0) % Lymph % (Auto) (16.0-40.0) % [place] % (Auto) (0.0-15.0) % Eos % (Auto) (0.0-7.0) % Baso % (Auto) (0.0-1.5) % Neut # (Auto) (1.4-5.7) K/uL Lymph # (Auto) (0.6-2.4) K/uL [place] # (Auto) (0.0-0.8) K/uL Eos # (Auto) (0.0-0.7) K/uL Baso # (Auto) (0.0-0.1) K/uL Nucleated RBC % /100WBC Nucleated RBCs # K/uL Sodium 142 (136-145) mmol/L Potassium 3.9 (3.5-5.1) mmol/L Chloride 108 H (98-107) mmol/L Carbon Dioxide 25.5 (21.0-32.0) mmol/L BUN 25 H (7.0-18.0) mg/dL Creatinine 1.9 H (0.6-1.0) mg/dL Est Cr Clr Drug Dosing 30.10 mL/min Estimated GFR (MDRD) 27.4 ml/min Glucose 85 (74-106) mg/dL Hemoglobin A1c (4.5 - 6.2) % Calcium 8.4 L (8.5-10.1) mg/dL Troponin I (0.000-0.056) ng/mL Free T4 (0.76-1.46) ng/dL TSH, Ultra Sensitive (0.36-3.74) uIU/mL Med Orders - Current: Current Medications Acetaminophen (Acetaminophen 325 Mg Tab) 650 mg PO Q4H PRN PRN Reason: Pain (Mild 1-3)/fever Albuterol/Ipratropium (Albuterol/Ipratropium 3.0-0.5 Mg/3 Ml Neb Soln) 3 ml NEB Q4HRRT PRN PRN Reason: Shortness Of Breath/wheezing Amlodipine Besylate (Amlodipine 2.5 Mg Tab) 2.5 mg PO BID [facility] Last Admin: 11/10/20 08:10 Dose: 2.5 mg Documented by: Aspirin (Aspirin 81 Mg Tab.Chew) 81 mg PO DAILY [facility] Last Admin: 11/10/20 08:10 Dose: 81 mg Documented by: Atorvastatin Calcium (Atorvastatin 20 Mg Tab) 20 mg PO BEDTIME [facility] Last Admin: 11/09/20 20:35 Dose: 20 mg Documented by: Al Hydroxide/Mg Hydroxide 15 (ml/ Lidocaine HCl 5 ml) 0 ml PO Q6H PRN PRN Reason: Chest Pain Last Admin: 11/10/20 02:35 Dose: 20 each Documented by: Furosemide (Furosemide 40 Mg Tab) 40 mg PO DAILY [facility] Last Admin: 11/10/20 11:14 Dose: 40 mg Documented by: Pantoprazole Sodium 40 mg/ (Sodium Chloride) 10 mls @ 300 mls/hr IV Q24H [facility] Last Admin: 11/10/20 02:35 Dose: 300 mls/hr Documented by: Losartan Potassium (Losartan 50 Mg Tab) 50 mg PO BID [facility] Last Admin: 11/10/20 11:14 Dose: 50 mg Documented by: Morphine Sulfate (Morphine 2 Mg/Ml Syringe) 1 mg IVPUSH Q6H PRN PRN Reason: Chest Pain Last Admin: 11/10/20 02:34 Dose: 1 mg Documented by: Multivitamins/Minerals/Vitamin C (Multivitamin Tab) 1 tab PO DAILY [facility] Last Admin: 11/10/20 08:11 Dose: 1 tab Documented by: Ondansetron HCl (Ondansetron 4 Mg/2 Ml Sdv) 4 mg IVPUSH Q4H PRN PRN Reason: Nausea Prednisone (Prednisone 10 Mg Tab) 15 mg PO DAILY [facility] Last Admin: 11/10/20 08:10 Dose: 15 mg Documented by: Sodium Chloride (Sodium Chloride 0.9% 2.5 Ml Syringe) 2.5 ml FLUSH ASDIRECTED PRN PRN Reason: Keep Vein Open Sucralfate (Sucralfate Suspension 1 Gm/10 Ml Cup) 1 gm PO QIDACANDBED [facility] Last Admin: 11/10/20 11:14 Dose: Not Given Documented by: Tacrolimus (Tacrolimus 1 Mg Cap) 3 mg PO BID [facility] Last Admin: 11/10/20 08:11 Dose: 3 mg Documented by: Venlafaxine HCl (Venlafaxine 75 Mg Cap.Er) 150 mg PO DAILY [facility] Last Admin: 11/10/20 08:10 Dose: 150 mg Documented by: Discontinued Medications Aspirin (Aspirin 81 Mg Tab.Chew) 324 mg PO ONETIME ONE Stop: 11/09/20 04:33 Last Admin: 11/09/20 04:37 Dose: 324 mg Documented by: Al Hydroxide/Mg Hydroxide 15 (ml/ Lidocaine HCl 5 ml) 0 ml PO ONETIME ONE Stop: 11/09/20 06:41 Last Admin: 11/09/20 06:48 Dose: 20 each Documented by: Pantoprazole Sodium 40 mg/ (Sodium Chloride) 10 mls @ 300 mls/hr IV ONETIME ONE Stop: 11/09/20 09:01 Last Admin: 11/09/20 10:29 Dose: 300 mls/hr Documented by: Sodium Chloride (Normal Saline) 500 mls @ 125 mls/hr IV ONETIME ONE Stop: 11/09/20 14:45 Last Admin: 11/09/20 11:30 Dose: 125 mls/hr Documented by: Morphine Sulfate (Morphine 4 Mg/Ml Syringe) 4 mg IVPUSH ONETIME ONE Stop: 11/09/20 04:32 Last Admin: 11/09/20 04:39 Dose: 4 mg Documented by: Nitroglycerin (Nitroglycerin 0.4 Mg Tab.Sl) 0.4 mg SL Q5M PRN PRN Reason: Chest Pain Last Admin: 11/09/20 06:14 Dose: 0.4 mg Documented by: Nitroglycerin (Nitroglycerin 0.4 Mg Tab.Sl) Confirm Administered Dose 0.4 mg .ROUTE .STK-MED ONE Stop: 11/09/20 04:42 Last Admin: 11/09/20 04:44 Dose: Not Given Documented by: Ondansetron HCl (Ondansetron 4 Mg/2 Ml Sdv) 4 mg IVPUSH ONETIME ONE Stop: 11/09/20 04:32 Last Admin: 11/09/20 04:39 Dose: 4 mg Documented by: Sodium Chloride (Sodium Chloride 0.9% 10 Ml Syringe) 10 ml FLUSH ASDIRECTED PRN PRN Reason: Keep Vein Open Sodium Chloride (Sodium Chloride 0.9% 2.5 Ml Syringe) 2.5 ml FLUSH ASDIRECTED PRN PRN Reason: Keep Vein Open
== END 2020-11-10 13:09 | disposition home or self-care (01) ==
LOC: MW.ED 04:23 → MW.MS 08:22
PROVIDERS: ADMIT Internal Medicine; ATTEND Internal Medicine
DX: R07.89 Other chest pain (principal); E78.5 Hyperlipidemia, unspecified; N05.1 Unspecified nephritic syndrome with focal and segmental glomerular lesions; I13.0 Hypertensive heart and chronic kidney disease with heart failure and stage 1 through stage 4 chronic kidney disease, or unspecified chronic kidney disease; N18.9 Chronic kidney disease, unspecified; D72.89 Other specified disorders of white blood cells; N17.9 Acute kidney failure, unspecified; K29.70 Gastritis, unspecified, without bleeding; F17.200 Nicotine dependence, unspecified, uncomplicated; Z79.82 Long term (current) use of aspirin; Z79.899 Other long term (current) drug therapy; Z88.8 Allergy status to other drugs, medicaments and biological substances; Z91.09 Other allergy status, other than to drugs and biological substances
CPT/HCPCS: 36415; 71045; 74176; 80048; 80053; 83036; 83690; 84439; 84443; 84484; 85025; 87338; 96374; 96375; 96376; 99285; A9270; C9113; G0378; J2270; J2405; J7040; J7507

== ENCOUNTER 2023-03-02 08:16 | Day surgery (SDC) | payer BC ==
[~2023-03-02 08:16] MED LIST: Lactated Ringers 1,000 ML IV SCH; Sodium Chloride 0.9% 10 ML Syringe FLUSH PRN; Sodium Chloride 0.9% 2.5 ML Syringe FLUSH PRN; Sodium Chloride 0.9% 20 ML SDV IV PRN
[2023-03-02] MEDS ORDERED: propofoL 50 ML ONE (08:18)
[2023-03-02] MEDS ORDERED: Sodium Chloride 0.9% 500 ML IV ONE (08:30)
[2023-03-02] MEDS ORDERED: ceFAZolin 1 GM Vial ONE (09:52)
[2023-03-02 13:41] VITALS: BP 120/65; PULSE 67
== END 2023-03-02 11:10 | disposition home or self-care (01) ==
LOC: MW.SDS 08:16
PROVIDERS: ATTEND Surgery
DX: Z12.11 Encounter for screening for malignant neoplasm of colon (principal); D12.3 Benign neoplasm of transverse colon; D12.0 Benign neoplasm of cecum; K62.1 Rectal polyp; I12.9 Hypertensive chronic kidney disease with stage 1 through stage 4 chronic kidney disease, or unspecified chronic kidney disease; N18.9 Chronic kidney disease, unspecified; E03.9 Hypothyroidism, unspecified; E78.00 Pure hypercholesterolemia, unspecified; Z87.891 Personal history of nicotine dependence; Z79.890 Hormone replacement therapy; Z79.899 Other long term (current) drug therapy; Z91.048 Other nonmedicinal substance allergy status; Z88.8 Allergy status to other drugs, medicaments and biological substances
CPT/HCPCS: 45380; 45385; J0690; J2704; J7040

== ENCOUNTER 2023-06-25 18:57 | Emergency (ER) | payer BC, MEDICARE ==
[2023-06-25 21:09] LABS: BASOPHILS ABSOLUTE AUTO 0.04 K/uL (0.00-0.20); BASOPHILS PERCENT AUTO 0.6 % (0.0-1.0); EOSINOPHILS ABSOLUTE AUTO 0.17 K/uL (0.00-0.45); EOSINOPHILS PERCENT AUTO 2.6 % (0.0-6.0); HEMATOCRIT 31.3 % (37.0-47.0); IMMATURE GRAN ABSOLUTE AUTO 0.02 K/uL (0.00-0.05); IMMATURE GRAN PERCENT AUTO 0.3 % (0.0-0.4); LYMPHOCYTES PERCENT AUTO 23.1 % (24.0-44.0); MEAN CORPUSCULAR HGB CONC 31.9 g/dL (32.0-36.0); MEAN CORPUSCULAR VOLUME 96.9 fL (83.0-99.0); MEAN PLATELET VOLUME 9.9 fL (9.4-12.3); MONOCYTES ABSOLUTE AUTO 0.59 K/uL (0.00-0.80); MONOCYTES PERCENT AUTO 9.1 % (0.0-8.0); NEUTROPHILS ABSOLUTE AUTO 4.16 K/uL (1.80-7.70); NEUTROPHILS PERCENT AUTO 64.3 % (41.0-71.0); PLATELET COUNT,PLT 160 K/uL (150-400); RED BLOOD CELL COUNT 3.23 M/uL (4.10-5.30); WHITE BLOOD CELL COUNT,WBC 6.48 K/uL (3.9-11.3)
[2023-06-25 21:38] LABS: A/G RATIO 0.7 (0.9-1.6); ALBUMIN 2.5 g/dL (3.4-5.0); BILIRUBIN TOTAL 0.4 mg/dL (0.2-1.0); CALCIUM 8.3 mg/dL (8.5-10.1); CARBON DIOXIDE,CO2 27.7 mmol/L (21.0-32.0); CREATININE 5.8 mg/dL (0.6-1.0); EST CRCL DRUG DOSING (CG) 11.18 mL/min; POTASSIUM,K 4.4 mmol/L (3.5-5.1); PROTEIN TOTAL,TP 6.1 g/dL (6.4-8.2)
[2023-06-25] MEDS: Azithromycin 200 MG/5 ML Susp 15 ML Bottle PO ONE (21:49)
[2023-06-25] MEDS: predniSONE 20 MG Tab PO ONE (21:51)
[2023-06-25] MEDS: Azithromycin 250 MG Tab PO STA (21:51)
[2023-06-25] MEDS: Albuterol 0.083% 2.5 MG/3 ML Neb Soln NEB ONE (21:53)
[2023-06-25 22:37] LABS: CORONAVIRUS COVID-19 NAA NEGATIVE (NEGATIVE); INFLUENZA A NAA NEGATIVE (NEGATIVE); INFLUENZA B NAA NEGATIVE (NEGATIVE); RESPIRATORY SYNCYTIAL VIR NAA NEGATIVE (NEGATIVE)
[2023-06-25 22:58] VITALS: BP 131/65; PULSE 64
== END 2023-06-25 22:57 | disposition home or self-care (01) ==
LOC: MW.ED 18:57
DX: R06.02 Shortness of breath (principal); I10 Essential (primary) hypertension; E78.00 Pure hypercholesterolemia, unspecified; E03.9 Hypothyroidism, unspecified; Z79.899 Other long term (current) drug therapy; Z91.018 Allergy to other foods; Z88.8 Allergy status to other drugs, medicaments and biological substances; Z88.6 Allergy status to analgesic agent
CPT/HCPCS: 0241U; 36415; 71045; 80053; 84484; 85025; 93005; 99285; A9270; 99283; J7620-GY

== ENCOUNTER 2025-02-12 06:11 | Observation (INO) | payer BC, MEDICARE ==
[2025-02-12 06:39] LABS: BASOPHILS ABSOLUTE AUTO 0.08 K/uL (0.00-0.20); BASOPHILS PERCENT AUTO 0.7 % (0.0-1.0); EOSINOPHILS ABSOLUTE AUTO 0.39 K/uL (0.00-0.45); EOSINOPHILS PERCENT AUTO 3.3 % (0.0-6.0); IMMATURE GRAN ABSOLUTE AUTO 0.18 K/uL (0.00-0.05); IMMATURE GRAN PERCENT AUTO 1.5 % (0.0-0.4); LYMPHOCYTES ABSOLUTE AUTO 2.10 K/uL (1.00-4.80); LYMPHOCYTES PERCENT AUTO 17.9 % (24.0-44.0); MEAN PLATELET VOLUME 10.0 fL (9.4-12.3); MONOCYTES ABSOLUTE AUTO 1.26 K/uL (0.00-0.80); MONOCYTES PERCENT AUTO 10.8 % (0.0-8.0); NEUTROPHILS ABSOLUTE AUTO 7.71 K/uL (1.80-7.70); NEUTROPHILS PERCENT AUTO 65.8 % (41.0-71.0); NRBC ABSOLUTE 0.00 K/uL (0.00-0.02); NRBC PERCENT 0.0 /100WBC (0.0-0.2); PLATELET COUNT,PLT 175 K/uL (150-400); RED BLOOD CELL COUNT 4.13 M/uL (4.10-5.30); WHITE BLOOD CELL COUNT,WBC 11.72 K/uL (3.9-11.3)
[2025-02-12 06:53] LABS: BLOOD UREA NITROGEN,BUN 14 mg/dL (7.0-18.0); CARBON DIOXIDE,CO2 26.9 mmol/L (21.0-32.0); CHLORIDE,CL 105 mmol/L (98-107); CREATININE 1.2 mg/dL (0.6-1.0); GLUCOSE RANDOM 107 mg/dL (74-106); POTASSIUM,K 4.3 mmol/L (3.5-5.1); SODIUM,NA 140 mmol/L (136-145)
[2025-02-12 06:54] LABS: ESTIMATED GFR 52 mL/min (>60)
[2025-02-12] MEDS: cefTRIAXone 2 GM in Water For Injection, Sterile 20 ML IVPUSH ONE (07:23)
[2025-02-12] MEDS: methylPREDNISolone Sodium Succinate 125 MG/2 ML SDV IVPUSH ONE (07:23)
[2025-02-12] MEDS ORDERED: Sodium Chloride 0.9% 2.5 ML Syringe FLUSH PRN (10:11)
[2025-02-12] MEDS ORDERED: Sodium Chloride 0.9% 10 ML Syringe FLUSH PRN (10:11)
[2025-02-12] MEDS ORDERED: Ondansetron 4 MG/2 ML SDV IVPUSH PRN (10:11)
[2025-02-12] MEDS ORDERED: Ondansetron 4 MG Tab.DIS PO PRN (10:11)
[2025-02-12] MEDS: Desvenlafaxine Succinate 25 MG TAB.ER PO SCH (11:30)
[2025-02-12] MEDS: Fluticasone Propion/Salmeterol [Advair 250-50 Diskus] INH SCH (20:24)
[2025-02-13] MEDS: cefTRIAXone 1 GM in Water For Injection, Sterile 10 ML IVPUSH SCH (05:59)
[2025-02-13 06:22] LABS: BASOPHILS ABSOLUTE AUTO 0.01 K/uL (0.00-0.20); BASOPHILS PERCENT AUTO 0.1 % (0.0-1.0); EOSINOPHILS ABSOLUTE AUTO 0.03 K/uL (0.00-0.45); EOSINOPHILS PERCENT AUTO 0.3 % (0.0-6.0); IMMATURE GRAN ABSOLUTE AUTO 0.18 K/uL (0.00-0.05); IMMATURE GRAN PERCENT AUTO 1.6 % (0.0-0.4); LYMPHOCYTES ABSOLUTE AUTO 1.42 K/uL (1.00-4.80); LYMPHOCYTES PERCENT AUTO 12.8 % (24.0-44.0); MEAN PLATELET VOLUME 10.3 fL (9.4-12.3); MONOCYTES ABSOLUTE AUTO 1.44 K/uL (0.00-0.80); MONOCYTES PERCENT AUTO 12.9 % (0.0-8.0); NEUTROPHILS ABSOLUTE AUTO 8.05 K/uL (1.80-7.70); NEUTROPHILS PERCENT AUTO 72.3 % (41.0-71.0); NRBC ABSOLUTE 0.00 K/uL (0.00-0.02); NRBC PERCENT 0.0 /100WBC (0.0-0.2); PLATELET COUNT,PLT 173 K/uL (150-400); RED BLOOD CELL COUNT 3.84 M/uL (4.10-5.30); WHITE BLOOD CELL COUNT,WBC 11.13 K/uL (3.9-11.3)
[2025-02-13 07:16] LABS: A/G RATIO 1.2 (0.9-1.6); ALANINE AMINOTRANSFERASE,ALT 38.0 IU/L (14-63); ASPARTATE AMNIOTRANSFERASE,AST 27.0 IU/L (15-37); BILIRUBIN TOTAL 0.6 mg/dL (0.2-1.0); BLOOD UREA NITROGEN,BUN 18.0 mg/dL (7.0-18.0); CARBON DIOXIDE,CO2 26.8 mmol/L (21.0-32.0); CHLORIDE,CL 103.0 mmol/L (98-107); CREATININE 1.2 mg/dL (0.6-1.0); EST CRCL DRUG DOSING (CG) 52.75 mL/min; FOLIC ACID 19.5 ng/mL (8.60-58.90); GLUCOSE RANDOM 102.0 mg/dL (74-106); POTASSIUM,K 4.4 mmol/L (3.5-5.1); PROTEIN TOTAL,TP 6.9 g/dL (6.4-8.2); SODIUM,NA 137.0 mmol/L (136-145)
[2025-02-13 07:18] LABS: ESTIMATED GFR 52.0 mL/min (>60)
[2025-02-13] MEDS: BUPROPION HCL 100 MG PO SCH (08:38)
[2025-02-13] MEDS: methylPREDNISolone Sodium Succinate 40 MG/1 ML SDV IVPUSH SCH (08:40)
[2025-02-13 12:21] VITALS: BP 152/80; PULSE 78
== END 2025-02-13 12:30 | disposition home or self-care (01) ==
LOC: MW.ED 06:11 → MW.MS 07:14
PROVIDERS: ADMIT Internal Medicine; ATTEND Internal Medicine
DX: J44.1 Chronic obstructive pulmonary disease with (acute) exacerbation (principal); I12.9 Hypertensive chronic kidney disease with stage 1 through stage 4 chronic kidney disease, or unspecified chronic kidney disease; N18.30 Chronic kidney disease, stage 3 unspecified; E78.00 Pure hypercholesterolemia, unspecified; E03.9 Hypothyroidism, unspecified; F41.8 Other specified anxiety disorders; Z20.822 Contact with and (suspected) exposure to COVID-19; Z79.899 Other long term (current) drug therapy; Z79.890 Hormone replacement therapy; Z79.82 Long term (current) use of aspirin; Z88.8 Allergy status to other drugs, medicaments and biological substances; Z91.09 Other allergy status, other than to drugs and biological substances; Z94.0 Kidney transplant status
CPT/HCPCS: 36415; 71045; 80048; 80053; 82607; 82746; 85025; 87428; 93005; 96374; 96375; 99285; A4216; A9270; J0696; J2919; J7507; J7620; Q0144; 96376; G0378